=== PATIENT | female | born 1985 | race Caucasian/White ===

== ENCOUNTER 2017-12-06 19:36 | Observation (INO) | payer OTHER ==
[2017-12-06 19:44] VITALS: BMI 23.9
--- NOTE | 2017-12-06 19:55 | PDOC ---
History of Present Illness - General Chief Complaint: Chest Pain Stated Complaint: CHEST PAIN/PALPITATION Time Seen by Provider: 12/06/17 19:54 Past History - Past Medical History Allergies/Adverse Reactions: Allergies Allergy/AdvReac Type Severity Reaction Status Date / Time No Known Allergies Allergy Verified 12/06/17 19:45 Home Medications: Ambulatory Orders Warfarin Na [Coumadin -] 4 mg PO ASDIR 03/18/16 Warfarin Na [Coumadin] 2 mg PO ASDIR 05/05/16 Anemia: No Asthma: No Cancer: No Cardiac Disorders: Yes (aortic valve replacement/ppm) CVA: No COPD: No CHF: No Dementia: No Diabetes: No GI Disorders: No Disorders: No HTN: No Hypercholesterolemia: No Liver Disease: No Seizures: No Thyroid Disease: No Other medical history: PACEMAKER - Surgical History Abdominal Surgery: No Appendectomy: No Cardiac Surgery: Yes (MITRAL AND AORTIC VALVE REPLACEMENT) Cholecystectomy: No Lung Surgery: No Neurologic Surgery: No Orthopedic Surgery: No - Immunization History Immunization Up to Date: Yes - Suicide/Smoking/Psychosocial Hx Smoking Status: No Smoking History: Never smoked Have you smoked in the past 12 months: No Number of Cigarettes Smoked Daily: 0 Information on smoking cessation initiated: No Hx Alcohol Use: No Drug/Substance Use Hx: No Substance Use Type: None *Physical Exam - Vital Signs Last Vital Signs Temp Pulse Resp BP Pulse Ox 98.7 F 67 16 168/91 100 12/06/17 19:41 12/06/17 19:41 12/06/17 19:41 12/06/17 19:41 12/06/17 19:41
--- NOTE | 2017-12-06 20:04 | PDOC ---
History of Present Illness - General Chief Complaint: Chest Pain Stated Complaint: CHEST PAIN/PALPITATION Time Seen by Provider: 12/06/17 19:54 History Source: Patient Exam Limitations: No Limitations - History of Present Illness Initial Comments: This is a 32 YOF with h/o aortic valve and mitral valve replacement (d/t suspected rheumatic fever), pacemaker use (placed 05/2015 now on coumadin) who p /w chest pressure at 8/10 and a strange feeling in her left arm (all this discomfort has since resolved), palpitations, and lightheadedness. 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 She did not not take anything for her symptoms, and she denies any SOB, sweats, nausea, vomiting, abdominal pain, or other symptoms. She endorsed prior history of palpitations, but never accompanied by chest discomfort. Last INR was 2.3 but she cannot recall when this was. She notes occasional alcohol use, but denies any tobacco or drug use. Past History - Past Medical History Allergies/Adverse Reactions: Allergies Allergy/AdvReac Type Severity Reaction Status Date / Time No Known Allergies Allergy Verified 12/06/17 19:45 Home Medications: Ambulatory Orders Warfarin Na [Coumadin -] 4 mg PO ASDIR 03/18/16 Warfarin Na [Coumadin] 2 mg PO ASDIR 05/05/16 Anemia: No Asthma: No Cancer: No Cardiac Disorders: Yes (aortic valve replacement/ppm) CVA: No COPD: No CHF: No Dementia: No Diabetes: No GI Disorders: No Disorders: No HTN: No Hypercholesterolemia: No Liver Disease: No Seizures: No Thyroid Disease: No Other medical history: PACEMAKER - Surgical History Abdominal Surgery: No Appendectomy: No Cardiac Surgery: Yes (MITRAL AND AORTIC VALVE REPLACEMENT) Cholecystectomy: No Lung Surgery: No Neurologic Surgery: No Orthopedic Surgery: No - Immunization History Immunization Up to Date: Yes - Suicide/Smoking/Psychosocial Hx Smoking Status: No Smoking History: Never smoked Have you smoked in the past 12 months: No Number of Cigarettes Smoked Daily: 0 Information on smoking cessation initiated: No Hx Alcohol Use: No Drug/Substance Use Hx: No Substance Use Type: None Cardiac Specific PMH - Complaint Specific PMHX Pacemaker: No Review of Systems - Review of Systems Able to Perform ROS?: Yes Constitutional: No: Chills, Fever, Unexplained wgt Loss HEENTM: No: Nose Congestion, Throat Pain Respiratory: No: Cough, Shortness of Breath Cardiac (ROS): Yes: Chest Pain, Lightheadedness, Palpitations ABD/GI: No: Constipated, Diarrhea, Nausea, Vomiting : No: Burning, Dysuria Musculoskeletal: No: Back Pain, Neck Pain Integumentary: No: Bruising, Rash Neurological: No: Headache, Numbness, Tingling, Weakness, Dizziness Endocrine: No: Unexplained Weight Gain, Unexplained Weight Loss *Physical Exam - Vital Signs Last Vital Signs Temp Pulse Resp BP Pulse Ox 98.7 F 65 15 162/81 100 12/06/17 19:41 12/06/17 22:23 12/06/17 22:23 12/06/17 22:23 12/06/17 22:23 Heart Score/ECG Review - History History: Moderately suspicious - Electrocardiogram EKG: Normal - Age Age: </= 45 #1 Atrial sensed ventricular paced rhythm, rate of 61, Sgarbossa negative ED Treatment Course - LABORATORY CBC & Chemistry Diagram: 12/06/17 20:00 12/06/17 20:00 - ADDITIONAL ORDERS Additional order review: Laboratory Results 12/06/17 12/06/17 12/06/17 20:00 20:00 20:00 PT with INR 25.70 H INR 2.27 H PTT (Actin FS) Sodium Potassium Chloride Carbon Dioxide Anion Gap BUN Creatinine Creat Clearance w eGFR Random Glucose Calcium Magnesium 2.2 Total Bilirubin AST ALT Alkaline Phosphatase Creatine Kinase Creatine Kinase Index CK-MB (CK-2) Troponin I B-Natriuretic Peptide Total Protein Albumin Serum , Qual Negative 12/06/17 12/06/17 12/06/17 20:00 20:00 20:00 PT with INR INR PTT (Actin FS) 36.2 H D Sodium 138 Potassium 3.8 Chloride 102 Carbon Dioxide 27 Anion Gap 9 BUN 10 Creatinine 0.9 Creat Clearance w eGFR > 60 Random Glucose 93 Calcium 8.7 Magnesium Total Bilirubin 0.6 AST 41 H ALT 34 Alkaline Phosphatase 85 Creatine Kinase 167 Creatine Kinase Index 0.5 CK-MB (CK-2) < 1.000 Troponin I 0.20 H B-Natriuretic Peptide 881.43 H Total Protein 8.4 H Albumin 4.2 Serum , Qual 12/06/17 20:00 RBC 4.70 MCV 81.2 MCHC 33.2 RDW 16.1 H MPV 9.2 Neutrophils % 58.8 Lymphocytes % 30.2 Monocytes % 7.9 Eosinophils % 2.2 Basophils % 0.9 - RADIOLOGY Radiology Studies Ordered: Category Date Time Status CHEST X-RAY PORTABLE* [RAD] Stat Radiology 12/06/17 20:03 Taken - Medications Given in the ED: ED Medications Discontinued Medications Generic Name Dose Route Start Last Admin Trade Name Brad PRN Reason Stop Dose Admin Aspirin 162 mg 12/06/17 20:47 12/06/17 21:12 Asa - PO 12/06/17 20:48 162 mg ONCE ONE Administration Clopidogrel Bisulfate 300 mg 12/06/17 20:47 12/06/17 21:12 Plavix - PO 12/06/17 20:48 300 mg ONCE ONE Administration Nitroglycerin 0.4 mg 12/06/17 20:25 12/06/17 20:28 Nitrostat - SL 12/06/17 20:26 0.4 mg ONCE ONE Administration Nitroglycerin 0.5 inch 12/06/17 21:09 12/06/17 21:12 Nitro-Bid 2% Paste - TD 12/06/17 21:10 0.5 inch ONCE ONE Administration Medical Decision Making - Medical Decision Making Adult patient p/w chest pain. Initial Vital Signs Temp Pulse Resp BP Pulse Ox 98.7 F 67 16 168/91 100 12/06/17 19:41 12/06/17 19:41 12/06/17 19:41 12/06/17 19:41 12/06/17 19:41 Bilateral arm BP at time of exam is Rt 172/diastolic, Lt 200/98. Exam: Well appearing, a bit anxious, lungs clear, heart mechanical valves heard , 1/6 systolic murmur DDX IBNLT: ACS, pericarditis, tamponade, aortic dissection, AAA, PTX, PE, esophageal tear, esophagitis (e.g. pill, infectious), esophageal stricture, esophageal FB, gastritis, PUD, pancreatitis, cholecystitis, cholangitis, colitis , bowel perforation, PNA/bronchitis, musculoskeletal, etc. W/U ordered: CBCD CMP Mg Phos Lipase Troponin CK CKMB Coags T&S UA UCx EKG CXR HCG. TX ordered: monitor, SL NTG, O2 via NC. EKG: Atrial sensed ventricular paced rhythm, rate of 61, Sgarbossa negative. 12/06/17 20:[address] 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 Jamil. He and Dr. Jamil will see the patient in consult while inpatient; consult order placed. Repeat bilateral arm BP after NTG is Rt 142/diastolic, Lt 168/diastolic. ASA ordered and given 324mg. NTG paste ordered. Repeat EKG ordered. Repeat EKG: No significant change (though lead placement likely explains V1/V2 ST-T changes, and pacer spikes are now more apparent). CXR: NADP Laboratory Tests 12/06/17 12/06/17 12/06/17 20:00 20:00 20:00 WBC 8.8 RBC 4.70 Hgb 12.7 Hct 38.2 MCV 81.2 MCH 27.0 MCHC 33.2 RDW 16.1 H Plt Count 305 D MPV 9.2 Neutrophils % 58.8 Lymphocytes % 30.2 Monocytes % 7.9 Eosinophils % 2.2 Basophils % 0.9 Platelet Estimate Adequate Platelet Comment PT with INR INR PTT (Actin FS) 36.2 H D Sodium 138 Potassium 3.8 Chloride 102 Carbon Dioxide 27 Anion Gap 9 BUN 10 Creatinine 0.9 Creat Clearance w eGFR > 60 Random Glucose 93 Calcium 8.7 Magnesium Total Bilirubin 0.6 AST 41 H ALT 34 Alkaline Phosphatase 85 Creatine Kinase 167 Creatine Kinase Index 0.5 CK-MB (CK-2) < 1.000 Troponin I 0.20 H B-Natriuretic Peptide Total Protein 8.4 H Albumin 4.2 Serum , Qual 12/06/17 12/06/17 12/06/17 20:00 20:00 20:00 WBC RBC Hgb Hct MCV MCH MCHC RDW Plt Count MPV Neutrophils % Lymphocytes % Monocytes % Eosinophils % Basophils % Platelet Estimate Platelet Comment PT with INR 25.70 H INR 2.27 H PTT (Actin FS) Sodium Potassium Chloride Carbon Dioxide Anion Gap BUN Creatinine Creat Clearance w eGFR Random Glucose Calcium Magnesium 2.2 Total Bilirubin AST ALT Alkaline Phosphatase Creatine Kinase Creatine Kinase Index CK-MB (CK-2) Troponin I B-Natriuretic Peptide 881.43 H Total Protein Albumin Serum , Qual 12/06/17 20:00 WBC RBC Hgb Hct MCV MCH MCHC RDW Plt Count MPV Neutrophils % Lymphocytes % Monocytes % Eosinophils % Basophils % Platelet Estimate Platelet Comment PT with INR INR PTT (Actin FS) Sodium Potassium Chloride Carbon Dioxide Anion Gap BUN Creatinine Creat Clearance w eGFR Random Glucose Calcium Magnesium Total Bilirubin AST ALT Alkaline Phosphatase Creatine Kinase Creatine Kinase Index CK-MB (CK-2) Troponin I B-Natriuretic Peptide Total Protein Albumin Serum , Qual Negative HEART score: Repeat VS: Reassessment: ADMIT Repeat cardiac enzymes ordered. Most likely elevated troponin d/t demand ischemia. The patient is unsafe for discharge at this time. They require further hospital observation, workup, and treatment. Microblog sent to [facility] for admission. Spoke with [facility], in agreement patient to be admitted to: Telemetry, Obs. Decision to Admit order placed to [facility] covering attending Dr. Fields. *DC/Admit/Observation/Transfer Diagnosis at time of Disposition: Elevated troponin, Palpitations, Lightheadedness - Discharge Dispostion Condition at time of disposition: Guarded Decision to Admit order: Yes - Referrals Referrals: Allyn Davidson MD [Primary Care Provider] - - Patient Instructions Additional Instructions: You were seen in the ER for chest pain. We did lab work on your blood and urine , an electrocardiogram, and a chest x-ray, and we did not find any concerning abnormalities. Your symptoms improved with the medications we gave you in the ER. After our assessment, we do not believe you are having a medical emergency at this time, and we believe you are safe to go home. Take over the counter pain medications for your pain, as instructed on the medication label. Please follow up with your regular PCP doctor in 1-3 days. Call their clinic as soon as possible, tell them you were seen in the ER, and tell them you need an appointment. If you have any new or worsening symptoms, especially worsening chest pain, jaw pain, shoulder/arm pain, shortness of breath, sweats, nausea, loss of consciousness, palpitations, or other symptoms, please come back to the ER at any time (24 hours a day). If you are having severe or life threatening symptoms, or symptoms that make it unsafe to drive or have someone drive you, please call 911. - Post Discharge Activity
--- NOTE | 2017-12-06 20:09 | PDOC ---
Attending Attestation - Resident Resident Name: Anuja Regalado - ED Attending Attestation I have performed the following: I have examined & evaluated the patient, The case was reviewed & discussed with the resident, I agree w/resident's findings & plan - HPI HPI: 12/06/17 20:07 Pt comes with left arm pain chest pain , palpitations, and tingling in toes. 8/ 10 pain. She was headed out to dinner with her family. She has no fever or chills, no nausea and no vomiting. Pt never had anything like this before. Just palpiations. She has a pacemaker in place since 2011, Mitral and aortic valve replacement. SHe takes coumadin Last INR was 2.3 12/06/17 20:34 INR today is 2.27 HCG negative CBC normal. CHem pending. BP is elevated at 200/93 -176 systolic Pt is on no BP meds. - Physicial Exam PE: 12/06/17 20:08 Agree with resident exam. - Medical Decision Making 12/06/17 20:35 Resident Bello is speaking to Dr. Gonzalez, who is implementation manager [facility] at this time. 12/06/17 22:28 Pt has a +trop, so we started ASA and plavix but CPK is not elevated and she has normal CK index and Ck-MB. Dr. Covarrubias of cardio is aware of the +trop. 12/06/17 22:33 2nd EKG has slightly more prominient t wave inversions in lead V6 and lead 3 Also V1 and V2 leads seem to be reversed. 12/07/17 00:35 Pt admitted to telemetry to the hospitalist team. 2nd enzyme will be checked up there <Carolyn Medina - Last Filed: 12/07/17 00:35> Heart Score/ECG Review - ECG Intrepretation Comment:: 12/06/17 22:30 Completed @19:49:15 Atrial-sensed ventricular-paced rhythm Abnormal ECG Vent. rate 61 bpm ID inerval 188 ms QRS duration 166 ms <Ulysses Whitman - Last Filed: 12/06/17 22:30>
[2017-12-06 20:11] LABS: BASO % 0.9 % (0-2.0); EOS % 2.2 % (0-4.5); HEMATOCRIT 38.2 % (32.4-45.2); HEMOGLOBIN 12.7 GM/dL (10.7-15.3); LYMPH % 30.2 % (8-40); MCHC 33.2 g/dl (32.0-36.0); MEAN CELL VOLUME 81.2 fl (80-96); MEAN PLT VOLUME 9.2 fl (7.5-11.1); MONO % 7.9 % (3.8-10.2); NEUT % 58.8 % (42.8-82.8); PLATELET COUNT 305 K/MM3 (134-434); RDW 16.1 % (11.6-15.6); WHITE BLOOD COUNT 8.8 K/mm3 (4.0-10.0)
[2017-12-06] MEDS ORDERED: NITROGLYCERIN SUBLINGUAL 1/150 0.4 MG TAB SL ONE (20:25)
[2017-12-06 20:26] LABS: INR 2.27 (0.82-1.09); PROTHROMBIN TIME (PATIENT) 25.7 SEC (9.7-13.0)
[2017-12-06 20:37] LABS: ALBUMIN 4.2 g/dl (3.4-5.0); ANION GAP 9 (8-16); BILIRUBIN,TOTAL 0.6 mg/dL (0.2-1.0); BLOOD UREA NITROGEN 10 mg/dL (7-18); CALCIUM 8.7 mg/dL (8.5-10.1); CHLORIDE 102 mmol/L (98-107); CO2 27 mmol/L (21-32); CREATININE 0.9 mg/dL (0.55-1.02); GLUCOSE,RANDOM 93 mg/dL (74-106); POTASSIUM 3.8 mmol/L (3.5-5.1); SGOT/AST 41 U/L (15-37); SGPT/ALT 34 U/L (12-78); SODIUM 138 mmol/L (136-145); TOT PROT 8.4 g/dl (6.4-8.2)
[2017-12-06 20:39] LABS: ALK PHOS 85 U/L (45-117)
[2017-12-06] MEDS ORDERED: CLOPIDOGREL BISULFATE 300 MG TABLET PO ONE (20:47)
[2017-12-06] MEDS ORDERED: ASPIRIN 81 MG CHEWABLE TABLETS PO ONE (20:47)
[2017-12-06 20:50] LABS: PLATELET ESTIMATE ADEQUATE
--- NOTE | 2017-12-06 20:54 | CON.CARD ---
Consult Consult Specialty:: Cardiology for osmel - History of Present Illness History of Present Illness: This is a 32 YOF with h/o aortic valve and mitral valve replacement (d/t suspected rheumatic fever), pacemaker use (placed 05/2015 now on coumadin) who p /w chest pressure at 8/10 and a strange feeling in her left arm (all this discomfort has since resolved), palpitations, and lightheadedness. 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 She did not not take anything for her symptoms, and she denies any SOB, sweats, nausea, vomiting, abdominal pain, or other symptoms. She endorsed prior history of palpitations, but never accompanied by chest discomfort. Last INR was 2.3 but she cannot recall when this was. She notes occasional alcohol use, but denies any tobacco or drug use. - History Source History Provided By: Patient, Medical Record - Alcohol/Substance Use Hx Alcohol Use: No - Smoking History Smoking history: Never smoked Have you smoked in the past 12 months: No Aproximately how many cigarettes per day: 0 Home Medications - Allergies Allergies/Adverse Reactions: Allergies Allergy/AdvReac Type Severity Reaction Status Date / Time No Known Allergies Allergy Verified 12/06/17 19:45 - Home Medications Home Medications: Ambulatory Orders Warfarin Na [Coumadin -] 4 mg PO ASDIR 03/18/16 Warfarin Na [Coumadin] 2 mg PO ASDIR 05/05/16 Review of Systems - Review of Systems Constitutional: reports: No Symptoms Eyes: reports: No Symptoms HENT: reports: No Symptoms Neck: reports: No Symptoms Cardiovascular: reports: Chest Pain, Palpitations Gastrointestinal: reports: No Symptoms Genitourinary: reports: No Symptoms Breasts: reports: No Symptoms Reported Musculoskeletal: reports: No Symptoms Integumentary: reports: No Symptoms Neurological: reports: No Symptoms Endocrine: reports: No Symptoms Hematology/Lymphatic: reports: No Symptoms Psychiatric: reports: No Symptoms Vital Signs: Vital Signs Temperature 98.7 F 12/06/17 19:41 Pulse Rate 67 12/06/17 19:41 Respiratory Rate 16 12/06/17 19:41 Blood Pressure 168/91 12/06/17 19:41 O2 Sat by Pulse Oximetry (%) 100 12/06/17 19:41 Constitutional: Yes: Well Nourished, No Distress, Calm Eyes: Yes: WNL, Conjunctiva Clear, EOM Intact HENT: Yes: WNL, Atraumatic, Normocephalic Neck: Yes: WNL, Supple, Trachea Midline Respiratory: Yes: WNL, Regular, CTA Bilaterally Gastrointestinal: Yes: WNL, Normal Bowel Sounds Renal/: Yes: WNL Cardiovascular: Yes: WNL, Regular Rate and Rhythm, Other (metalic clic) Heart Sounds: Yes: S1, S2 Murmur: Yes: Systolic Murmur Musculoskeletal: Yes: WNL Extremities: Yes: WNL Integumentary: Yes: WNL Neurological: Yes: WNL, Alert, Oriented ...Motor Strength: WNL Psychiatric: Yes: WNL, Alert, Oriented - Other Data Labs, Other Data: CBC, BMP 12/06/17 20:00 12/06/17 20:00 INR, PTT INR 2.27 (0.82-1.09) H 12/06/17 20:00 Troponin, BNP 12/06/17 12/06/17 20:00 20:00 Troponin I 0.20 H B-Natriuretic Peptide 881.43 H Troponin, BNP 12/06/17 12/06/17 20:00 20:00 Troponin I 0.20 H B-Natriuretic Peptide 881.43 H Imaging - Results Chest X-ray: Image Reviewed (no i/e) EKG: Image Reviewed (sr rep abn) Problem List - Problems (1) Elevated troponin Code(s): R74.8 - ABNORMAL LEVELS OF OTHER SERUM ENZYMES (2) Lightheadedness Code(s): R42 - DIZZINESS AND GIDDINESS (3) Palpitations Code(s): R00.2 - PALPITATIONS (4) Cellulitis Code(s): L03.90 - CELLULITIS, UNSPECIFIED Qualifiers: Site of cellulitis: extremity Site of cellulitis of extremity: lower extremity Laterality: left Qualified Code(s): L03.116 - Cellulitis of left lower limb (5) Ecchymosis Code(s): R58 - HEMORRHAGE, NOT ELSEWHERE CLASSIFIED (6) Foot swelling Code(s): M79.89 - OTHER SPECIFIED SOFT TISSUE DISORDERS (7) Code(s): Z33.1 - STATE, INCIDENTAL Assessment/Plan s/p avr mvr mechanical s/p ppm admited with cp palpitations lighedness borderline tnis borderline subtherapeutic inr Plan keep INR 2.5-3.5 echo telemetry will need ppm interrogation coverage dr. Jamil
[2017-12-06] MEDS ORDERED: CLOPIDOGREL BISULFATE 75 MG TABLET (FP) ONE (21:07)
[2017-12-06] MEDS ORDERED: ASPIRIN 81 MG CHEWABLE TABLETS ONE (21:08)
[2017-12-06] MEDS ORDERED: NITROGLYCERIN 2% OINTMENT - 1GM PACKET TD ONE ×2 (21:09→21:35)
[2017-12-06] MEDS ORDERED: FUROSEMIDE 40 MG/4 ML INJECTABLE VIAL IVPUSH ONE (22:31)
[2017-12-06] MEDS ORDERED: FUROSEMIDE 40 MG/4 ML INJECTABLE VIAL ONE (22:42)
--- NOTE | 2017-12-06 23:49 | HP ---
CHIEF COMPLAINT: palpitations PCP: Dr Avila HISTORY OF PRESENT ILLNESS: The patient is a 32 year old female with a significant PMH of mitral and aortic valve replacement in 2007 and 2014 after suspected endocarditis, s/p pacemaker in 2011, on Coumadin. She presented to the hospital complaining of palpitations and chest tightness that started around 7 PM when she was going for a dinner with family. Her palpitations lasted for 5 min and chest tightness was in mid sternum. It was associated with dizziness. She states that she never experienced palpitations like that in the past. At the time a saw the patient she denies chest pain, SOB. She is compliant with er medications and follows her turkey pinner Dr Louise. 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 Family History: Father; HTN Mother: DM, HTN Siblings healthy, child: ADHD Allergies No Known Allergies Allergy (Verified 12/06/17 19:45) HOME MEDICATIONS: Home Medications Medication Instructions Recorded Warfarin Na [Coumadin -] 4 mg PO ASDIR 03/18/16 Warfarin Na [Coumadin] 2 mg PO ASDIR 05/05/16 REVIEW OF SYSTEMS CONSTITUTIONAL: Absent: fever, chills, diaphoresis, generalized weakness, malaise, loss of appetite, weight change HEENT: Absent: rhinorrhea, nasal congestion, throat pain, difficulty swallowing, CARDIOVASCULAR: palpitations Absent: chest pain, syncope irregular heart rate, lightheadedness, peripheral edema RESPIRATORY: Absent: cough, shortness of breath, dyspnea with exertion, orthopnea, wheezing GASTROINTESTINAL: Absent: abdominal pain, abdominal distension, nausea, vomiting, diarrhea, constipation GENITOURINARY: Absent: dysuria, frequency, urgency, hesitancy, hematuria MUSCULOSKELETAL: Absent: myalgia, arthralgia, joint swelling, ENDOCRINE: Absent: unexplained weight gain, unexplained weight loss, NEUROLOGIC: Absent: headache, focal weakness or paresthesias, dizziness, unsteady gait, seizure PSYCHIATRIC: Absent: anxiety, depression PHYSICAL EXAMINATION Vital Signs - 24 hr 12/06/17 12/06/17 19:41 22:23 Temperature 98.7 F Pulse Rate 67 Pulse Rate [ 65 Apical] Respiratory 16 15 Rate Blood Pressure 168/91 Blood Pressure 162/81 [Left Arm] O2 Sat by Pulse 100 100 Oximetry (%) GENERAL: Awake, alert, and fully oriented, in no acute distress. HEAD: Normal with no signs of trauma. EYES: extraocular movements intact, sclera anicteric, conjunctiva clear. EARS, NOSE, THROAT: oropharynx clear without exudates. Moist mucous membranes. NECK: Normal range of motion, supple without lymphadenopathy, JVD, or masses. LUNGS: Breath sounds equal, clear to auscultation bilaterally. No wheezes, and no crackles. No accessory muscle use. HEART: Regular rate and rhythm, normal S1 and S2, mechanical valve sound, no rub or gallop, pacemaker palpated over the right side of her chest. ABDOMEN: Obese, soft, nontender, not distended, normoactive bowel sounds, no guarding, no rebound, no masses. MUSCULOSKELETAL: Normal range of motion at all joints. No bony deformities or tenderness. UPPER EXTREMITIES: 2+ pulses, no peripheral edema. LOWER EXTREMITIES: 2+ pulses, no peripheral edema. NEUROLOGICAL: No facial asymmetry, motor 5/5, sensation intact. PSYCHIATRIC: Cooperative. Good eye contact. Appropriate mood and affect. SKIN: Warm, dry, normal turgor, no rashes or lesions noted, normal capillary refill. Laboratory Results - last 24 hr 12/06/17 12/06/17 12/06/17 20:00 20:00 20:00 WBC 8.8 RBC 4.70 Hgb 12.7 Hct 38.2 MCV 81.2 MCH 27.0 MCHC 33.2 RDW 16.1 H Plt Count 305 D MPV 9.2 Neutrophils % 58.8 Lymphocytes % 30.2 Monocytes % 7.9 Eosinophils % 2.2 Basophils % 0.9 Platelet Estimate Adequate Platelet Comment PT with INR INR PTT (Actin FS) 36.2 H D Sodium 138 Potassium 3.8 Chloride 102 Carbon Dioxide 27 Anion Gap 9 BUN 10 Creatinine 0.9 Creat Clearance w eGFR > 60 Random Glucose 93 Calcium 8.7 Magnesium Total Bilirubin 0.6 AST 41 H ALT 34 Alkaline Phosphatase 85 Creatine Kinase 167 Creatine Kinase Index 0.5 CK-MB (CK-2) < 1.000 Troponin I 0.20 H B-Natriuretic Peptide Total Protein 8.4 H Albumin 4.2 Serum , Qual 12/06/17 12/06/17 12/06/17 20:00 20:00 20:00 WBC RBC Hgb Hct MCV MCH MCHC RDW Plt Count MPV Neutrophils % Lymphocytes % Monocytes % Eosinophils % Basophils % Platelet Estimate Platelet Comment PT with INR 25.70 H INR 2.27 H PTT (Actin FS) Sodium Potassium Chloride Carbon Dioxide Anion Gap BUN Creatinine Creat Clearance w eGFR Random Glucose Calcium Magnesium 2.2 Total Bilirubin AST ALT Alkaline Phosphatase Creatine Kinase Creatine Kinase Index CK-MB (CK-2) Troponin I B-Natriuretic Peptide 881.43 H Total Protein Albumin Serum , Qual 12/06/17 20:00 WBC RBC Hgb Hct MCV MCH MCHC RDW Plt Count MPV Neutrophils % Lymphocytes % Monocytes % Eosinophils % Basophils % Platelet Estimate Platelet Comment PT with INR INR PTT (Actin FS) Sodium Potassium Chloride Carbon Dioxide Anion Gap BUN Creatinine Creat Clearance w eGFR Random Glucose Calcium Magnesium Total Bilirubin AST ALT Alkaline Phosphatase Creatine Kinase Creatine Kinase Index CK-MB (CK-2) Troponin I B-Natriuretic Peptide Total Protein Albumin Serum , Qual Negative ASSESSMENT/PLAN: The patient is a 32 year old female with a significant PMH of mitral and aortic valve replacement in 2007 and 2014 after suspected endocarditis, s/p pacemaker in 2011, on Coumadin. She presented to the hospital complaining of palpitations and chest tightness. She was found to have elevated troponins to 0.2, elevated BNP 881. Elevated troponins: -likely due to demand ischemia -Cardiology consulted, will follow recommendations -given NTG, ASA, Plavix in ED -will continue ASA and Coumadin, consider starting Beta Blockers -will trend troponins -f/u EKG H/o of valve replacement: -the patient with a INR 2.27. Her level should be between 2.5-3.5 -will continue Coumadin -please interrogate the device with [employer] History of CHF: -today BNP elevated to 881 -given Lasix in ED -not in acute exacerbation DVT PPX: -heparin sq -scds F/E/N: no/no changes/low Na Disposition: obs telemetry Problem List - Problem (1) Elevated troponin Code(s): R74.8 - ABNORMAL LEVELS OF OTHER SERUM ENZYMES (2) Lightheadedness Code(s): R42 - DIZZINESS AND GIDDINESS (3) Palpitations Code(s): R00.2 - PALPITATIONS Visit type - Emergency Visit Emergency Visit: Yes ED Registration Date: 12/06/17 Care time: The patient presented to the Emergency Department on the above date and was hospitalized for further evaluation of their emergent condition. - New Patient This patient is new to me today: Yes Date on this admission: 12/07/17 - Critical Care Critical Care patient: No Hospitalist Screening - Colonoscopy Questionnaire Colonoscopy Questionnaire: Colonoscopy Questionnaire - Patient: 50 - 75 years old and never had a screening colonoscopy: No History of colon or rectal polyps, or CA: No History of IBD, Crohn's disease or UC: No History of abdominal radiation therapy as a child: No - Relative: 1 with colon or rectal CA, or polyps at age 60 or younger: No Colon or rectal CA diagnosed at age 45 or younger: No Multiple relatives with colon or rectal CA: No - Outcome: Screening Result: Negative Screen
[2017-12-07] MEDS ORDERED: ACETAMINOPHEN 325 MG TABLET (FP) PO PRN (00:33)
--- NOTE | 2017-12-07 02:50 | PN ---
Teaching Attending Note Name of Resident: Nicki Godwin ATTENDING PHYSICIAN STATEMENT I saw and evaluated the patient. I reviewed the resident's note and discussed the case with the resident. I agree with the resident's findings and plan as documented. SUBJECTIVE: OBJECTIVE: ASSESSMENT AND PLAN: this is a 32y/o f with hx of Rheumatic heart disease, s/p AVR and MVR x 2 ([facility] 2007 [place] and 2014 [facility]), Pacemaker placement 2015 last interrogation was 2 months ago. Biotronik Dual chamber device. HFrEF, post- cardiomyopathy, 2007, and terminated due to the CHF. presented to the ER with complaints of palpitations that started around 7pm when she was leaving the house, according to her she does get them frequently however this one lasted more than the normal, last time she had them the doctor changed the setting of the pacemaker. patient is being admitted for NSTEMI: - patient was given aspirin, clopidogrel, and nitroglycerin in the ER for the symptoms. will continue aspirin will consult cardiology obtain echocardiogram c/w warfarin INR should be between 2.5-3.5 ( taking 2mg 3x a wk and 4mg x 4 days - 12/06 last dose) device interrogation from Mister Mario
[2017-12-07 07:38] LABS: EOS % 3.3 % (0-4.5); HEMOGLOBIN 11.6 GM/dL (10.7-15.3); LYMPH % 31.9 % (8-40); MCH 26.2 pg (25.7-33.7); MCHC 32.2 g/dl (32.0-36.0); MEAN CELL VOLUME 81.5 fl (80-96); MEAN PLT VOLUME 9.8 fl (7.5-11.1); MONO % 7.9 % (3.8-10.2); NEUT % 55.9 % (42.8-82.8); PLATELET COUNT 303 K/MM3 (134-434); RBC 4.42 M/mm3 (3.60-5.2); WHITE BLOOD COUNT 7.1 K/mm3 (4.0-10.0)
[2017-12-07 07:46] LABS: ALBUMIN 3.9 g/dl (3.4-5.0); ANION GAP 8 (8-16); BLOOD UREA NITROGEN 12 mg/dL (7-18); CALCIUM 8.8 mg/dL (8.5-10.1); CHLORIDE 103 mmol/L (98-107); CO2 29 mmol/L (21-32); CREATININE 0.9 mg/dL (0.55-1.02); GLUCOSE,RANDOM 79 mg/dL (74-106); MAGNESIUM 2.3 mg/dL (1.8-2.4); SGOT/AST 37 U/L (15-37); SGPT/ALT 31 U/L (12-78); SODIUM 140 mmol/L (136-145); TOT PROT 7.7 g/dl (6.4-8.2)
[2017-12-07 07:55] LABS: ALK PHOS 82 U/L (45-117); BILIRUBIN,TOTAL 0.6 mg/dL (0.2-1.0); CHOLESTEROL 175 mg/dL (50-200); HDL CHOLESTEROL 53 mg/dL (40-60); PHOSPHOROUS 4.8 mg/dL (2.5-4.9); TRIGLYCERIDES 95 mg/dL (35-160)
[2017-12-07 07:59] LABS: INR 2.31 (0.82-1.09); PROTHROMBIN TIME (PATIENT) 26.1 SEC (9.7-13.0)
--- NOTE | 2017-12-07 08:25 | PN ---
Progress Note, Physician History of Present Illness: 32y/o f with hx of Rheumatic heart disease, s/p AVR and MVR x 2 ([facility] 2007 [place] and 2014 [facility]), Pacemaker placement 2015 last interrogation was 2 months ago. Biotronik Dual chamber device. HFrEF, post- cardiomyopathy, C -section 2007, and terminated due to the CHF. presented to the ER with complaints of palpitations that started around 7pm when she was leaving the house, according to her she does get them frequently however this one lasted more than the normal, last time she had them the doctor changed the setting of the pacemaker. This is a 32 YOF with h/o aortic valve and mitral valve replacement (d/t suspected rheumatic fever), pacemaker use (placed 05/2015 now on coumadin) who p /w chest pressure at 8/10 and a strange feeling in her left arm (all this discomfort has since resolved), palpitations, and lightheadedness. She describes being the passenger in a car about 30 min [employer] to the ED when she had the onset of symptoms. She did not not take anything for her symptoms, and she denies any SOB, sweats, nausea, vomiting, abdominal pain, or other symptoms. She endorsed prior history of palpitations, but never accompanied by chest discomfort. Last INR was 2.3 but she cannot recall when this was. She notes occasional alcohol use, but denies any tobacco or drug use. - Current Medication List Current Medications: Active Medications Acetaminophen (Tylenol -) 325 mg PO Q6H PRN PRN Reason: PAIN LEVEL 4 - 6 Aspirin (Asa -) 81 mg PO DAILY [facility] Heparin Sodium (Porcine) (Heparin -) 5,000 unit SQ BID [facility] Warfarin Sodium (Coumadin -) 2 mg PO DAILY@1800 [facility] - Objective Vital Signs: Vital Signs Temperature 97.9 F 12/07/17 06:00 Pulse Rate 58 L 12/07/17 06:00 Respiratory Rate 15 12/07/17 06:06 Blood Pressure 123/68 12/07/17 06:00 O2 Sat by Pulse Oximetry (%) 100 12/07/17 06:06 Eyes: Yes: WNL, Conjunctiva Clear, EOM Intact HENT: Yes: WNL, Atraumatic, Normocephalic Neck: Yes: WNL, Supple, Trachea Midline Cardiovascular: Yes: WNL, Regular Rate and Rhythm, Murmur, S1, S2 Respiratory: Yes: WNL, Regular, CTA Bilaterally Gastrointestinal: Yes: WNL, Normal Bowel Sounds Genitourinary: Yes: WNL Musculoskeletal: Yes: WNL Extremities: Yes: WNL Edema: No Integumentary: Yes: WNL Neurological: Yes: WNL, Alert, Oriented ...Motor Strength: WNL Psychiatric: Yes: WNL Labs: CBC, BMP 12/07/17 06:02 12/07/17 06:02 INR, PTT INR 2.31 (0.82-1.09) H 12/07/17 06:02 Problem List - Problems (1) Elevated troponin Code(s): R74.8 - ABNORMAL LEVELS OF OTHER SERUM ENZYMES (2) Lightheadedness Code(s): R42 - DIZZINESS AND GIDDINESS (3) Palpitations Code(s): R00.2 - PALPITATIONS (4) Cellulitis Code(s): L03.90 - CELLULITIS, UNSPECIFIED Qualifiers: Site of cellulitis: extremity Site of cellulitis of extremity: lower extremity Laterality: left Qualified Code(s): L03.116 - Cellulitis of left lower limb (5) Ecchymosis Code(s): R58 - HEMORRHAGE, NOT ELSEWHERE CLASSIFIED (6) Foot swelling Code(s): M79.89 - OTHER SPECIFIED SOFT TISSUE DISORDERS (7) Code(s): Z33.1 - STATE, INCIDENTAL Assessment/Plan s/pAVR and MVR x 2 ([facility] 2007 [place] and 2014 [facility]), Pacemaker placement 2016 last interrogation was 2 months ago. Biotronik Dual chamber device. HFrEF, post- cardiomyopathy, 2007, and terminated due to the CHF. s/p ppm admited with cp palpitations lighedness borderline tnis -unclear significance no evidence of ACS borderline subtherapeutic inr Plan keep INR 2.5-3.5 echo telemetry will need ppm interrogation coverage dr. Jamil
--- NOTE | 2017-12-07 08:41 | EKG ---
Test Reason : Blood Pressure : / mmHG Vent. Rate : 065 BPM Atrial Rate : 065 BPM P-R Int : 138 ms QRS Dur : 168 ms QT Int : 528 ms P-R-T Axes : 048 097 006 degrees QTc Int : 549 ms POOR DATA QUALITY, INTERPRETATION MAY BE ADVERSELY AFFECTED Atrial-sensed ventricular-paced rhythm ABNORMAL ECG WHEN COMPARED WITH ECG OF 23-AUG-2011 20:57, ELECTRONIC VENTRICULAR PACEMAKER HAS REPLACED SINUS RHYTHM Confirmed by MARY ELLEN MOORE, CHENG ([id number]) on 12/07/2017 8:41:20 AM Referred By: Confirmed By:CHENG HYDE MD
[2017-12-07] MEDS: ASPIRIN 81 MG CHEWABLE TABLETS PO SCH (09:31)
[2017-12-07] MEDS ORDERED: HEPARIN NA (PORCINE) 5,000 UNITS/ML 1ML VIAL SQ SCH (10:00)
--- NOTE | 2017-12-07 13:25 | EKG ---
Test Reason : Blood Pressure : / mmHG Vent. Rate : 055 BPM Atrial Rate : 055 BPM P-R Int : 148 ms QRS Dur : 164 ms QT Int : 550 ms P-R-T Axes : 021 107 046 degrees QTc Int : 526 ms Atrial-sensed ventricular-paced rhythm ABNORMAL ECG WHEN COMPARED WITH ECG OF 06-DEC-2017 22:15, VENT. RATE HAS DECREASED BY 10 BPM Confirmed by MARY ELLEN MOORE, CHENG ([id number]) on 12/07/2017 1:24:39 PM Referred By: Sandra FRANCIS Confirmed By:CHENG HYDE MD
--- NOTE | 2017-12-07 14:28 | PN ---
Teaching Attending Note Name of Resident: Jyoti Munoz SUBJECTIVE: Patient seen and examined, no further chest pain or palpitations, doing well overnight, no dyspnea. OBJECTIVE: Vital Signs Period Temp Pulse Resp BP Sys/Resendiz Pulse Ox Last 24 Hr 97.9 F-98.7 F 58-88 15-18 116-168/57-91 100-100 Intake & Output 12/04/17 12/05/17 12/06/17 12/07/17 23:59 23:59 23:59 23:59 Intake Total 100 Balance 100 Weight 135 lb 135 lb General: sitting in bed in no acute distress Chest: CTAB, no rales or wheezing Abdomen:soft, NT, ND CVS: S1S2 regular, mechanical click in aortic area Home Medication List Medication Instructions Recorded Confirmed Type Warfarin Na [Coumadin -] 4 mg PO ASDIR 03/18/16 12/06/17 History Warfarin Na [Coumadin] 2 mg PO ASDIR 05/05/16 12/06/17 History Active Medications Generic Name Dose Route Start Last Admin Trade Name Brad PRN Reason Stop Dose Admin Acetaminophen 325 mg 12/07/17 00:33 Tylenol - PO Q6H PRN PAIN LEVEL 4 - 6 Aspirin 81 mg 12/07/17 10:00 12/07/17 09:31 Asa - PO 81 mg DAILY [facility] Administration Warfarin Sodium 4 mg 12/07/17 18:00 Coumadin - PO DAILY@1800 [facility] Laboratory Results - last 24 hr 12/06/17 12/06/17 12/06/17 20:00 20:00 20:00 WBC 8.8 RBC 4.70 Hgb 12.7 Hct 38.2 MCV 81.2 MCH 27.0 MCHC 33.2 RDW 16.1 H Plt Count 305 D MPV 9.2 Neutrophils % 58.8 Lymphocytes % 30.2 Monocytes % 7.9 Eosinophils % 2.2 Basophils % 0.9 Platelet Estimate Adequate Platelet Comment PT with INR INR PTT (Actin FS) 36.2 H D Sodium 138 Potassium 3.8 Chloride 102 Carbon Dioxide 27 Anion Gap 9 BUN 10 Creatinine 0.9 Creat Clearance w eGFR > 60 Random Glucose 93 Calcium 8.7 Phosphorus Magnesium Total Bilirubin 0.6 AST 41 H ALT 34 Alkaline Phosphatase 85 Creatine Kinase 167 Creatine Kinase Index 0.5 CK-MB (CK-2) < 1.000 Troponin I 0.20 H B-Natriuretic Peptide Total Protein 8.4 H Albumin 4.2 Triglycerides Cholesterol Total LDL Cholesterol HDL Cholesterol Serum , Qual 12/06/17 12/06/17 12/06/17 20:00 20:00 20:00 WBC RBC Hgb Hct MCV MCH MCHC RDW Plt Count MPV Neutrophils % Lymphocytes % Monocytes % Eosinophils % Basophils % Platelet Estimate Platelet Comment PT with INR 25.70 H INR 2.27 H PTT (Actin FS) Sodium Potassium Chloride Carbon Dioxide Anion Gap BUN Creatinine Creat Clearance w eGFR Random Glucose Calcium Phosphorus Magnesium 2.2 Total Bilirubin AST ALT Alkaline Phosphatase Creatine Kinase Creatine Kinase Index CK-MB (CK-2) Troponin I B-Natriuretic Peptide 881.43 H Total Protein Albumin Triglycerides Cholesterol Total LDL Cholesterol HDL Cholesterol Serum , Qual 12/06/17 12/07/17 12/07/17 20:00 01:00 06:02 WBC RBC Hgb Hct MCV MCH MCHC RDW Plt Count MPV Neutrophils % Lymphocytes % Monocytes % Eosinophils % Basophils % Platelet Estimate Platelet Comment PT with INR INR PTT (Actin FS) Sodium Potassium Chloride Carbon Dioxide Anion Gap BUN Creatinine Creat Clearance w eGFR Random Glucose Calcium Phosphorus Magnesium Total Bilirubin AST ALT Alkaline Phosphatase Creatine Kinase Creatine Kinase Index CK-MB (CK-2) Troponin I 0.21 H 0.17 H B-Natriuretic Peptide Total Protein Albumin Triglycerides Cholesterol Total LDL Cholesterol HDL Cholesterol Serum , Qual Negative 12/07/17 12/07/17 12/07/17 06:02 06:02 06:02 WBC 7.1 RBC 4.42 Hgb 11.6 Hct 36.0 MCV 81.5 MCH 26.2 MCHC 32.2 RDW 16.0 H Plt Count 303 MPV 9.8 Neutrophils % 55.9 Lymphocytes % 31.9 Monocytes % 7.9 Eosinophils % 3.3 Basophils % 1.0 Platelet Estimate Platelet Comment PT with INR 26.10 H INR 2.31 H PTT (Actin FS) Sodium 140 Potassium 4.0 Chloride 103 Carbon Dioxide 29 Anion Gap 8 BUN 12 Creatinine 0.9 Creat Clearance w eGFR > 60 Random Glucose 79 Calcium 8.8 Phosphorus 4.8 Magnesium 2.3 Total Bilirubin 0.6 AST 37 ALT 31 Alkaline Phosphatase 82 Creatine Kinase Creatine Kinase Index CK-MB (CK-2) Troponin I B-Natriuretic Peptide Total Protein 7.7 Albumin 3.9 Triglycerides 95 Cholesterol 175 Total LDL Cholesterol 110 H HDL Cholesterol 53 Serum , Qual CXr - no acute process ASSESSMENT AND PLAN: 32 yof with PMHx of Rheumatic Heart Disease, AVR/MVR , s/p PPM, HRpEF, post cardiomyopathy, admitted with palpitations and elevated troponin. -Palpitations, r/o arrhthymia -Elevated troponin, low suspicion for ACS -S/p AVR/MVR. Plan: Cardiology input noted. Continue telemetry, follow up2D echo. Discussed with RN, PPM interrogation with Infers. Check TSH s/p lasix in ED, clinical exam not consistent with volume overload. INR 2.3 Patient on warfarin 2 mg MWF and 4 mg TThSS, will continue 4mg daily till in therapeutic range Dispo in 24 hours pending above if no concerns. Plan discussed with patient in detail, all questions answered.
[2017-12-07] MEDS ORDERED: WARFARIN NA 2 MG TABLET (UD) PO SCH ×2 (18:00)
--- NOTE | 2017-12-07 21:44 | EKG ---
Test Reason : Blood Pressure : / mmHG Vent. Rate : 061 BPM Atrial Rate : 061 BPM P-R Int : 188 ms QRS Dur : 166 ms QT Int : 526 ms P-R-T Axes : -09 103 009 degrees QTc Int : 529 ms Atrial-sensed ventricular-paced rhythm ABNORMAL ECG WHEN COMPARED WITH ECG OF 23-AUG-2011 20:57, ELECTRONIC VENTRICULAR PACEMAKER HAS REPLACED SINUS RHYTHM Confirmed by MARY ELLEN MOORE, CHENG ([id number]) on 12/07/2017 9:44:42 PM Referred By: Confirmed By:CHENG HYDE MD
[2017-12-08 06:04] LABS: EOS % 4.6 % (0-4.5); HEMATOCRIT 34.1 % (32.4-45.2); HEMOGLOBIN 11.2 GM/dL (10.7-15.3); LYMPH % 33.3 % (8-40); MCH 26.9 pg (25.7-33.7); MCHC 32.9 g/dl (32.0-36.0); MEAN CELL VOLUME 81.9 fl (80-96); MEAN PLT VOLUME 9.7 fl (7.5-11.1); MONO % 6.9 % (3.8-10.2); NEUT % 54.2 % (42.8-82.8); PLATELET COUNT 269 K/MM3 (134-434); RBC 4.16 M/mm3 (3.60-5.2); RDW 15.7 % (11.6-15.6); WHITE BLOOD COUNT 6.6 K/mm3 (4.0-10.0)
[2017-12-08 06:15] LABS: INR 2.33 (0.82-1.09); PROTHROMBIN TIME (PATIENT) 26.3 SEC (9.7-13.0)
[2017-12-08 06:25] LABS: ANION GAP 5 (8-16); BLOOD UREA NITROGEN 15 mg/dL (7-18); CALCIUM 8.4 mg/dL (8.5-10.1); CHLORIDE 108 mmol/L (98-107); CO2 27 mmol/L (21-32); CREATININE 0.8 mg/dL (0.55-1.02); GLUCOSE,RANDOM 85 mg/dL (74-106); MAGNESIUM 2.1 mg/dL (1.8-2.4); PHOSPHOROUS 3.8 mg/dL (2.5-4.9); POTASSIUM 4.2 mmol/L (3.5-5.1); SODIUM 140 mmol/L (136-145)
--- NOTE | 2017-12-08 07:53 | PN ---
Physical Exam: SUBJECTIVE: Patient seen and examined. No chest pain or palpitations overnight. Wants to go home. OBJECTIVE: Vital Signs Period Temp Pulse Resp BP Sys/Resendiz Pulse Ox Last 24 Hr 97.6 F-98.0 F 48-88 18-18 116-150/57-85 100-100 GENERAL: The patient is awake, alert, and fully oriented, in no acute distress. HEAD: Normal with no signs of trauma. EYES: PERRL, extraocular movements intact, sclera anicteric, conjunctiva clear. No ptosis. ENT: Ears normal, nares patent, oropharynx clear without exudates, moist mucous membranes. NECK: Trachea midline, full range of motion, supple. LUNGS: Breath sounds equal, clear to auscultation bilaterally, no wheezes, no crackles, no accessory muscle use. HEART: Regular rate and rhythm, S1, S2 without murmur, rub or gallop. ABDOMEN: Soft, nontender, nondistended, normoactive bowel sounds, no guarding, no rebound, no hepatosplenomegaly, no masses. EXTREMITIES: 2+ pulses, warm, well-perfused, no edema. NEUROLOGICAL: Cranial nerves II through XII grossly intact. Normal speech, gait not observed. PSYCH: Normal mood, normal affect. SKIN: Warm, dry, normal turgor, no rashes or lesions noted Laboratory Results - last 24 hr 12/07/17 12/07/17 12/07/17 06:02 06:02 06:02 WBC RBC Hgb Hct MCV MCH MCHC RDW Plt Count MPV Neutrophils % Lymphocytes % Monocytes % Eosinophils % Basophils % PT with INR 26.10 H INR 2.31 H Sodium Potassium Chloride Carbon Dioxide Anion Gap BUN Creatinine Random Glucose Calcium Phosphorus 4.8 Magnesium Total Bilirubin 0.6 Alkaline Phosphatase 82 Troponin I 0.17 H Triglycerides 95 Cholesterol 175 Total LDL Cholesterol 110 H HDL Cholesterol 53 12/08/17 12/08/17 12/08/17 05:48 05:48 05:48 WBC 6.6 RBC 4.16 Hgb 11.2 Hct 34.1 MCV 81.9 MCH 26.9 MCHC 32.9 RDW 15.7 H Plt Count 269 MPV 9.7 Neutrophils % 54.2 Lymphocytes % 33.3 Monocytes % 6.9 Eosinophils % 4.6 H Basophils % 1.0 PT with INR 26.30 H INR 2.33 H Sodium 140 Potassium 4.2 Chloride 108 H Carbon Dioxide 27 Anion Gap 5 L BUN 15 Creatinine 0.8 Random Glucose 85 Calcium 8.4 L Phosphorus 3.8 Magnesium 2.1 Total Bilirubin Alkaline Phosphatase Troponin I Triglycerides Cholesterol Total LDL Cholesterol HDL Cholesterol Active Medications Generic Name Dose Route Start Last Admin Trade Name Freq PRN Reason Stop Dose Admin Acetaminophen 325 mg 12/07/17 00:33 Tylenol - PO Q6H PRN PAIN LEVEL 4 - 6 Aspirin 81 mg 12/07/17 10:00 12/07/17 09:31 Asa - PO 81 mg DAILY [facility] Administration Warfarin Sodium 4 mg 12/07/17 18:00 12/07/17 17:28 Coumadin - PO 4 mg DAILY@1800 [facility] Administration ASSESSMENT/PLAN:
--- NOTE | 2017-12-08 08:50 | PN ---
Progress Note, Physician Chief Complaint: feels fine Tele negative - Current Medication List Current Medications: Active Medications Acetaminophen (Tylenol -) 325 mg PO Q6H PRN PRN Reason: PAIN LEVEL 4 - 6 Aspirin (Asa -) 81 mg PO DAILY [facility] Last Admin: 12/07/17 09:31 Dose: 81 mg Warfarin Sodium (Coumadin -) 4 mg PO DAILY@1800 [facility] Last Admin: 12/07/17 17:28 Dose: 4 mg - Objective Vital Signs: Vital Signs Temperature 97.9 F 12/08/17 05:33 Pulse Rate 48 L 12/08/17 05:33 Respiratory Rate 18 12/08/17 05:33 Blood Pressure 123/60 12/08/17 05:33 O2 Sat by Pulse Oximetry (%) 100 12/08/17 05:33 Constitutional: Yes: No Distress Cardiovascular: Yes: Regular Rate and Rhythm Respiratory: Yes: CTA Bilaterally Gastrointestinal: Yes: Soft Edema: No Neurological: Yes: Alert, Oriented Labs: CBC, BMP 12/08/17 05:48 12/08/17 05:48 INR, PTT INR 2.33 (0.82-1.09) H 12/08/17 05:48 Laboratory Tests 12/06/17 12/07/17 12/07/17 20:00 01:00 06:02 INR Potassium Creatinine Creatine Kinase 167 Troponin I 0.20 H 0.21 H 0.17 H TSH 12/08/17 12/08/17 05:48 05:48 INR 2.33 H Potassium 4.2 Creatinine 0.8 Creatine Kinase Troponin I TSH Pending - ....Imaging Chest X-ray: Report Reviewed, Image Reviewed EKG: Image Reviewed Assessment/Plan s/pAVR and MVR x 2 ([facility] 2007 [place] and 2014 [facility]), Pacemaker placement 2016 last interrogation was 2 months ago. Biotronik Dual chamber device. admited with cp palpitations lighedness borderline tnis -unclear significance no evidence of ACS borderline subtherapeutic inr REC: Echo Adjust coumadin for INR 2.5-3 PPM interrogation
--- NOTE | 2017-12-08 08:50 | PN ---
Teaching Attending Note Name of Resident: Eli Gorman ATTENDING PHYSICIAN STATEMENT I saw and evaluated the patient. I reviewed the resident's note and discussed the case with the resident. I agree with the resident's findings and plan as documented with exceptions below. SUBJECTIVE: Patient seen and examined. no complaints, no further episodes of palpitations, eager to go home. OBJECTIVE: Vital Signs Period Temp Pulse Resp BP Sys/Resendiz Pulse Ox Last 24 Hr 97.6 F-98.0 F 48-88 18-18 116-150/57-85 100-100 Intake & Output 12/05/17 12/06/17 12/07/17 12/08/17 23:59 23:59 23:59 23:59 Intake Total 730 100 Balance 730 100 Weight 135 lb 135 lb General : ambulating in hallway, no concerns CVS: S1S2 regular Chest: CTAB, no rales or wheezing Home Medication List Medication Instructions Recorded Confirmed Type Warfarin Na [Coumadin -] 4 mg PO ASDIR 03/18/16 12/06/17 History Warfarin Na [Coumadin] 2 mg PO ASDIR 05/05/16 12/06/17 History Active Medications Generic Name Dose Route Start Last Admin Trade Name Freq PRN Reason Stop Dose Admin Acetaminophen 325 mg 12/07/17 00:33 Tylenol - PO Q6H PRN PAIN LEVEL 4 - 6 Aspirin 81 mg 12/07/17 10:00 12/07/17 09:31 Asa - PO 81 mg DAILY BILL Administration Warfarin Sodium 4 mg 12/07/17 18:00 12/07/17 17:28 Coumadin - PO 4 mg DAILY@1800 BILL Administration Laboratory Results - last 24 hr 12/08/17 12/08/17 12/08/17 05:48 05:48 05:48 WBC 6.6 RBC 4.16 Hgb 11.2 Hct 34.1 MCV 81.9 MCH 26.9 MCHC 32.9 RDW 15.7 H Plt Count 269 MPV 9.7 Neutrophils % 54.2 Lymphocytes % 33.3 Monocytes % 6.9 Eosinophils % 4.6 H Basophils % 1.0 PT with INR 26.30 H INR 2.33 H Sodium 140 Potassium 4.2 Chloride 108 H Carbon Dioxide 27 Anion Gap 5 L BUN 15 Creatinine 0.8 Random Glucose 85 Calcium 8.4 L Phosphorus 3.8 Magnesium 2.1 TSH 12/08/17 05:48 WBC RBC Hgb Hct MCV MCH MCHC RDW Plt Count MPV Neutrophils % Lymphocytes % Monocytes % Eosinophils % Basophils % PT with INR INR Sodium Potassium Chloride Carbon Dioxide Anion Gap BUN Creatinine Random Glucose Calcium Phosphorus Magnesium TSH Cancelled ASSESSMENT AND PLAN: 32 yof with PMHx of Rheumatic Heart Disease, AVR/MVR , s/p PPM, HRpEF, post cardiomyopathy, admitted with palpitations and elevated troponin. -Palpitations, r/o arrhthymia -Elevated troponin, low suspicion for ACS -S/p AVR/MVR. Plan: Cardiology input noted. Continue telemetry, 2D echo noted. PPM interrogated, discussed with rep, episode of atrial tachycardia 140s but Ventricular rate 80s, unlikely to cause symptoms. TSH WNL. s/p lasix in ED, clinical exam not consistent with volume overload. INR 2.3 COumadin increased to 5 mg daily by cardiology, INR check in 2-3 days. Dispo today pending discussion with Dr. Jamil. Plan discussed with patient in detail, all questions answered.
[2017-12-08] MEDS: ASPIRIN 81 MG CHEWABLE TABLETS PO SCH (09:13)
[2017-12-08 10:11] VITALS: TEMP 98
[2017-12-08 15:19] VITALS: BP 126/70; PULSE 54
[2017-12-08] MEDS ORDERED: WARFARIN NA 5 MG TABLET (UD) PO SCH (18:00)
--- NOTE | 2017-12-08 21:36 | DS ---
Physical Exam: SUBJECTIVE: Patient seen and examined. No chest pain or palpitations overnight. Wants to go home. Device interrogation did not show any defects. To get ECHO this am. Pt wants to go home. OBJECTIVE: Vital Signs Period Temp Pulse Resp BP Sys/Resendiz Pulse Ox Last 24 Hr 97.6 F-98 F 48-65 18-18 123-150/60-83 100-100 Vital Signs Temp 98 F 12/08/17 15:17 Pulse 54 L 12/08/17 15:17 Resp 18 12/08/17 15:17 BP 126/70 12/08/17 15:17 Pulse Ox 100 12/08/17 09:00 PHYSICAL EXAM GENERAL: The patient is awake, alert, and fully oriented, in no acute distress. NECK: No JVD LUNGS: Breath sounds equal, clear to auscultation bilaterally, no wheezes, no crackles HEART: Regular rate and rhythm, S1, S2 , mechanical heart sounds in mitral and aortic areas. ABDOMEN: Soft, nontender, nondistended, normoactive bowel sounds EXTREMITIES: 2+ pulses, warm, well-perfused, no edema. NEUROLOGICAL: Cranial nerves II through XII grossly intact. Normal speech, normal gait PSYCH: Normal mood, normal affect. SKIN: Warm, dry, normal turgor, no rashes or lesions noted. LABS Laboratory Results - last 24 hr 12/08/17 12/08/17 12/08/17 05:48 05:48 05:48 WBC 6.6 RBC 4.16 Hgb 11.2 Hct 34.1 MCV 81.9 MCH 26.9 MCHC 32.9 RDW 15.7 H Plt Count 269 MPV 9.7 Neutrophils % 54.2 Lymphocytes % 33.3 Monocytes % 6.9 Eosinophils % 4.6 H Basophils % 1.0 PT with INR 26.30 H INR 2.33 H Sodium 140 Potassium 4.2 Chloride 108 H Carbon Dioxide 27 Anion Gap 5 L BUN 15 Creatinine 0.8 Random Glucose 85 Calcium 8.4 L Phosphorus 3.8 Magnesium 2.1 TSH 1.31 12/08/17 05:48 WBC RBC Hgb Hct MCV MCH MCHC RDW Plt Count MPV Neutrophils % Lymphocytes % Monocytes % Eosinophils % Basophils % PT with INR INR Sodium Potassium Chloride Carbon Dioxide Anion Gap BUN Creatinine Random Glucose Calcium Phosphorus Magnesium TSH Cancelled ECHO: 12/08/17: EF-60-65%. Bileaflet mitral and aortic mechanical prosthetic valves without regurgitation. Mild-moderate TR, mild SD. No evidence of pericardial effusion. 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 She presented to the hospital complaining of palpitations and chest tightness. She was found to have elevated troponins to 0.2, elevated BNP 881. Elevated troponins: Was likely due to demand ischemia. Pt received NTG, ASA, Plavix in ED and continued with coumadin. Troponins peaked and trended down to normal. Her Coumadin dose was adjusted to 5mg daily as she came in subtherapeutic with a goal of 2.5-3.5. H/o of valve replacement: The patient presented with a INR 2.27. Her level should be between 2.5-3.5.Her Coumadin dose was adjusted to 5mg daily. Her device was interrogated with [place] History of CHF: She presented with BNP elevated to 881, received Lasix in ED. Not in acute exacerbation, so lasix was discontinued. Patient to follow up in 2-3 days with [employer] Dr Jamil for INR and coumadin adjustment. - Minutes to complete discharge: 40 Discharge Summary Reason For Visit: PALPITATIONS,LIGHTHEADEDNESS,ELEVATED TROPONIN Condition: Stable - Instructions Diet, Activity, Other Instructions: You were admitted for palpitations. Your ECHO was reviewed with Dr. Jamil with no concerns. Start taking 5mg of coumadin everyday. We are giving you a prescription for the next one week. Please follow up with Dr. Jamil on Friday12/12/2017 to have your blood pressure and INR checked and your coumadin will be dosed according to INR reading on Friday. Follow up with your PCP in 1 week. If you have any new or worsening symptoms, especially worsening chest pain, jaw pain, shoulder/arm pain, shortness of breath, sweats, nausea, loss of consciousness, palpitations, or other symptoms, please return to the ER . watch for bleeding from gums, nose, urine and stool. Referrals: Alexandre Jamil MD [Staff Physician] - 12/10/17 Allyn Davisdon MD [Primary Care Provider] - 1 Week Disposition: HOME - Home Medications Comprehensive Discharge Medication List: Ambulatory Orders Warfarin Sodium [Coumadin] 5 mg PO DAILY 7 Days #7 tablet 12/08/17 This patient is new to me today: Yes Date on this admission: 12/08/17 Emergency Visit: Yes ED Registration Date: 12/06/17 Care time: The patient presented to the Emergency Department on the above date and was hospitalized for further evaluation of their emergent condition. Critical Care patient: No - Discharge Referral Referred to [facility] No
== END 2017-12-08 16:14 | disposition home or self-care (01) ==
LOC: JER 19:36 → JERBED 22:40 → J4W 12-07 00:01
PROVIDERS: ADMIT Internal Medicine; ATTEND Hospitalist
PROC: 3E033GC Introduction of Other Therapeutic Substance into Peripheral Vein, Percutaneous Approach (ICD-10-PCS; principal; 2017-12-06)
DX: R00.2 Palpitations (principal); R77.8 Other specified abnormalities of plasma proteins; R42 Dizziness and giddiness; Z79.01 Long term (current) use of anticoagulants; Z95.2 Presence of prosthetic heart valve; Z98.0 Intestinal bypass and anastomosis status; R94.31 Abnormal electrocardiogram [ECG] [EKG]; L03.116 Cellulitis of left lower limb; R58 Hemorrhage, not elsewhere classified; M79.89 Other specified soft tissue disorders; Z33.1 Pregnant state, incidental
CPT/HCPCS: 36415; 71045-TC-FY; 80048; 80053; 80061; 82550; 82553; 83721; 83735; 83880; 84100; 84443; 84484; 84703; 85025; 85610; 85730; 93005; 93010; 93306-TC; 99282-25; G0378

== ENCOUNTER 2017-12-30 17:17 | Emergency (ER) | payer OTHER ==
[2017-12-30 17:27] VITALS: BP 157/85; PULSE 72; TEMP 98.2; BMI 24.4
--- NOTE | 2017-12-30 17:28 | PDOC ---
Rapid Medical Evaluation Time Seen by Provider: 12/30/17 17:22 Medical Evaluation: Allergies Allergy/AdvReac Type Severity Reaction Status Date / Time No Known Allergies Allergy Verified 12/06/17 19:45 12/30/17 17:23 I have performed a brief in-person evaluation of this patient. The patient presents with a chief complaint of: Fr[place]i- seen by cardiology for INR check - today was 8.4. Had INR 2 weeks ago was 2.9 aND COUMADIN INCREASED- no headche, no bowel or bladder bleeding , menstrating now. Pertinent physical exam findings: Pale, I have ordered the following: CBC, INR, CMP, IV The patient will proceed to the ED for further evaluation. 12/30/17 17:23 Discharge Disposition - Referrals Referrals: Allyn Davidson MD [Primary Care Provider] - - Patient Instructions - Post Discharge Activity
[2017-12-30 17:49] LABS: URINE APPEARANCE CLOUDY; URINE BILIRUBIN NEGATIVE (<2.0 mg/dL); URINE BLOOD 3+ (NEGATIVE); URINE COLOR LTYELLOW; URINE GLUCOSE (UA) NEGATIVE (NEGATIVE); URINE KETONE NEGATIVE (NEGATIVE); URINE LEUK ESTERASE NEGATIVE (NEGATIVE); URINE NITRITE NEGATIVE (NEGATIVE); URINE PROTEIN NEGATIVE (NEGATIVE); URINE UROBILINOGEN NEGATIVE mg/dL (0.2-1.0)
[2017-12-30 18:35] LABS: BASO % 1.4 % (0-2.0); EOS % 3.2 % (0-4.5); HEMATOCRIT 36.3 % (32.4-45.2); HEMOGLOBIN 11.4 GM/dL (10.7-15.3); LYMPH % 33.2 % (8-40); MCH 25.7 pg (25.7-33.7); MCHC 31.4 g/dl (32.0-36.0); MEAN PLT VOLUME 9.7 fl (7.5-11.1); NEUT % 56.2 % (42.8-82.8); PLATELET COUNT 302 K/MM3 (134-434); RBC 4.43 M/mm3 (3.60-5.2); RDW 15.6 % (11.6-15.6); WHITE BLOOD COUNT 8.3 K/mm3 (4.0-10.0)
[2017-12-30 18:59] LABS: PROTHROMBIN TIME (PATIENT) 82.2 SEC (9.7-13.0)
[2017-12-30 19:02] LABS: INR 7.27 (0.82-1.09)
--- NOTE | 2017-12-30 19:45 | PDOC ---
History of Present Illness - General History Source: Patient Exam Limitations: No Limitations <Cyrus Saeed - Last Filed: 12/30/17 20:54> - History of Present Illness Initial Comments: 12/30/17 19:50 "The patient is a 32 year old female, with a significant past medical history of aortic valve and mitral valve replacement on Warfarin, pacemaker (placed 2014), who presents to the emergency department with an elevated INR. As per patient, she was visiting her PCP when he performed a point of care INR test that registered >8.0. She was then told to come to ED for formal INR testing. The patients last dose of Coumadin was yesterday, 5mg. She takes 4mg of Coumadin 3 times a week and 5mg 4 times a week. She reports having a minor nosebleed yesterday that resolved spontaneously but denies any other abnormal bleeding. The pt notes she is also on her period but denies any heavier than normal bleeding. She denies recent fevers, chills, headache or dizziness. She denies recent nausea, vomit, diarrhea or constipation. She denies recent dysuria, frequency, urgency or hematuria. She denies recent chest pain or shortness of breath. Allergies: NKA Past surgical history: 2 mechanical valve placements (mitral and aortic), pacemaker implantation. Social history: Nonsmoker. Denies EtOH use and recreational drug use. Primary Care Physician: Dr. Davidson " <Neil Harris - Last Filed: 12/30/17 21:59> - General Chief Complaint: Revisit, Lab Variance Stated Complaint: REF BY DOCTOR Time Seen by Provider: 12/30/17 17:22 Past History <Cyrus Saeed - Last Filed: 12/30/17 20:54> - Past Medical History Anemia: No Asthma: No Cancer: No Cardiac Disorders: Yes (aortic valve replacement/ppm) CVA: No COPD: No CHF: No Dementia: No Diabetes: No GI Disorders: No Disorders: No HTN: No Hypercholesterolemia: No Liver Disease: No Seizures: No Thyroid Disease: No - Surgical History Abdominal Surgery: No Appendectomy: No Cardiac Surgery: Yes (MITRAL AND AORTIC VALVE REPLACEMENT) Cholecystectomy: No Lung Surgery: No Neurologic Surgery: No Orthopedic Surgery: No - Immunization History Immunization Up to Date: Yes - Suicide/Smoking/Psychosocial Hx Smoking Status: No Smoking History: Never smoked Have you smoked in the past 12 months: No Number of Cigarettes Smoked Daily: 0 Hx Alcohol Use: No Drug/Substance Use Hx: No Substance Use Type: None Hx Substance Use Treatment: No <Neil Harris - Last Filed: 12/30/17 21:59> - Past Medical History Allergies/Adverse Reactions: Allergies Allergy/AdvReac Type Severity Reaction Status Date / Time No Known Allergies Allergy Verified 12/30/17 17:23 Home Medications: Ambulatory Orders Warfarin Sodium [Coumadin] 5 mg PO DAILY 7 Days #7 tablet 12/08/17 Review of Systems - Review of Systems Comments:: 12/30/17 19:52 "GENERAL/CONSTITUTIONAL: No fever or chills. No weakness. HEAD, EYES, EARS, NOSE AND THROAT: No change in vision. No ear pain or discharge. No sore throat. CARDIOVASCULAR: No chest pain or shortness of breath. RESPIRATORY: No cough, wheezing, or hemoptysis. GASTROINTESTINAL: No nausea, vomiting, diarrhea or constipation. GENITOURINARY: No dysuria, frequency, or change in urination. MUSCULOSKELETAL: No joint or muscle swelling or pain. No neck or back pain. SKIN: No rash NEUROLOGIC: No headache, vertigo, loss of consciousness, or change in strength/ sensation. ENDOCRINE: No increased thirst. No abnormal weight change. HEMATOLOGIC/LYMPHATIC: No anemia, easy bleeding, or history of blood clots. ALLERGIC/IMMUNOLOGIC: No hives or skin allergy. " <Neil Harris - Last Filed: 12/30/17 21:59> *Physical Exam - Vital Signs Last Vital Signs Temp Pulse Resp BP Pulse Ox 98.2 F 72 20 157/85 100 12/30/17 17:23 12/30/17 17:23 12/30/17 17:23 12/30/17 17:23 12/30/17 17:23 <Cyrus Saeed - Last Filed: 12/30/17 20:54> - Vital Signs Last Vital Signs Temp Pulse Resp BP Pulse Ox 98.2 F 72 20 157/85 100 12/30/17 17:23 12/30/17 17:23 12/30/17 17:23 12/30/17 17:23 12/30/17 17:23 - Physical Exam Comments: 12/30/17 19:52 "GENERAL: Awake, alert, and fully oriented, in no acute distress. HEAD: No signs of trauma EYES: PERRLA, EOMI, sclera anicteric, conjunctiva clear ENT: Auricles normal inspection, hearing grossly normal, nares patent, oropharynx clear without exudates. Moist mucosa NECK: Nontender, no stepoffs, Normal ROM, supple, no lymphadenopathy, JVD, or masses LUNGS: Breath sounds equal, clear to auscultation bilaterally. No wheezes, and no crackles HEART: Regular rate and rhythm, normal S1 and S2, no murmurs, rubs or gallops ABDOMEN: Soft, nontender, normoactive bowel sounds. No guarding, no rebound. No masses EXTREMITIES: Normal range of motion, no edema. No clubbing or cyanosis. No cords, erythema, or tenderness NEUROLOGICAL: Cranial nerves II through XII intact. 5/5 strength and sensation in all extremities, Normal speech, normal gait, normal cerebellar function SKIN: Warm, Dry, normal turgor, no rashes or lesions noted. " <Neil Harris - Last Filed: 12/30/17 21:59> ED Treatment Course - LABORATORY CBC & Chemistry Diagram: 12/30/17 18:10 - ADDITIONAL ORDERS Additional order review: Laboratory Results 12/30/17 12/30/17 12/30/17 18:10 18:10 17:30 PT with INR 82.20 H INR 7.27 H* D Urine Color Ltyellow Urine Appearance Cloudy Urine pH 7.0 D Ur Specific [place] 1.020 Urine Protein Negative Urine Glucose (UA) Negative Urine Ketones Negative Urine Blood 3+ H Urine Nitrite Negative Urine Bilirubin Negative Urine Urobilinogen Negative Ur Leukocyte Esterase Negative Urine WBC (Auto) <1 Urine RBC (Auto) 76 Ur Epithelial Cells Rare Urine Yeast Many Blood Type A POSITIVE Antibody Screen Negative 12/30/17 18:10 RBC 4.43 MCV 82.0 MCHC 31.4 L RDW 15.6 MPV 9.7 Neutrophils % 56.2 Lymphocytes % 33.2 Monocytes % 6.0 Eosinophils % 3.2 Basophils % 1.4 <Cyrus Saeed - Last Filed: 12/30/17 20:54> - LABORATORY CBC & Chemistry Diagram: 12/30/17 18:10 12/30/17 21:01 - ADDITIONAL ORDERS Additional order review: Laboratory Results 12/30/17 12/30/17 18:10 17:30 PT with INR 82.20 H INR 7.27 H* D Urine Color Ltyellow Urine Appearance Cloudy Urine pH 7.0 D Ur Specific [place] 1.020 Urine Protein Negative Urine Glucose (UA) Negative Urine Ketones Negative Urine Blood 3+ H Urine Nitrite Negative Urine Bilirubin Negative Urine Urobilinogen Negative Ur Leukocyte Esterase Negative 12/30/17 18:10 RBC 4.43 MCV 82.0 MCHC 31.4 L RDW 15.6 MPV 9.7 Neutrophils % 56.2 Lymphocytes % 33.2 Monocytes % 6.0 Eosinophils % 3.2 Basophils % 1.4 <Neil Harris - Last Filed: 12/30/17 21:59> Medical Decision Making - Medical Decision Making 12/30/17 19:40 32 F sent in for INR check after POC INR was >8 in office today. Pt with no complaints. Reports normal menstrual bleeding, no other bleeding. No s/s anemia. - Labs, INR 12/30/17 21:59 Labs wnl INR 7.3 Pt given vitamin K 2.5mg PO. Instructed to hold Coumadin today. Pt is well appearing, with normal vitals. Clinically stable for DC at this time. I discussed the physical exam findings, ancillary test results and final diagnoses with the patient. I answered all of the patient's questions. The patient was satisfied with the care received and felt comfortable with the discharge plan and treatment plan. The patient agrees to follow up with the primary care physician within 24-72 hours. <Neil Harris - Last Filed: 12/30/17 21:59> *DC/Admit/Observation/Transfer - Attestations Scribe Attestion: 12/30/17 20:54 Documentation prepared by Cyrus Saeed, acting as associate medical director for Neil Harris MD. <Cyrus Saeed - Last Filed: 12/30/17 20:54> - Attestations Physician Attestion: 12/30/17 21:38 I, Dr. Neil Harris MD, attest that this document has been prepared under my direction and personally reviewed by me in its entirety. I further attest, that it accurately reflects all work, treatment, procedures and medical decision -making performed by me. <Neil Harris - Last Filed: 12/30/17 21:59> Diagnosis at time of Disposition: Supratherapeutic INR - Discharge Dispostion Disposition: HOME - Referrals Referrals: Allyn Davidson MD [Primary Care Provider] - - Patient Instructions Printed Discharge Instructions: Warfarin Additional Instructions: Your INR today was 7.3. HOLD your next dose of coumadin and resume taking it as usual the day after. Follow up with your primary doctor for another INR check within 1 week. If you experience any abnormal bleeding, lightheadedness, or any other concerning symptoms, return to the ER immediately. - Post Discharge Activity
[2017-12-30] MEDS ORDERED: PHYTONADIONE 5 MG TABLET PO ONE ×2 (19:46→21:14)
[2017-12-30 19:55] LABS: EPI CELLS RARE /HPF (FEW); YEAST MANY
[2017-12-30 20:15] LABS: PLATELET ESTIMATE ADEQUATE
[2017-12-30 21:53] LABS: ALK PHOS 83 U/L (45-117); ANION GAP 7 (8-16); BILIRUBIN,TOTAL 0.5 mg/dL (0.2-1.0); BLOOD UREA NITROGEN 17 mg/dL (7-18); CALCIUM 8.7 mg/dL (8.5-10.1); CHLORIDE 106 mmol/L (98-107); CO2 27 mmol/L (21-32); CREATININE 0.8 mg/dL (0.55-1.02); GLUCOSE,RANDOM 89 mg/dL (74-106); POTASSIUM 3.8 mmol/L (3.5-5.1); SGOT/AST 28 U/L (15-37); SGPT/ALT 23 U/L (12-78); SODIUM 140 mmol/L (136-145); TOT PROT 8.1 g/dl (6.4-8.2)
== END 2017-12-30 22:08 | disposition home or self-care (01) ==
LOC: JER 17:17
DX: R79.1 Abnormal coagulation profile (principal); Z79.01 Long term (current) use of anticoagulants; Z95.2 Presence of prosthetic heart valve; Z95.0 Presence of cardiac pacemaker
CPT/HCPCS: 36415; 80053; 81003; 81015; 85025; 85610; 86850; 86900; 86901; 99283-25

== ENCOUNTER 2021-08-27 13:29 | Emergency (ER) | payer OTHER ==
[2021-08-27 13:52] VITALS: BMI 23.9
[2021-08-27] MEDS ORDERED: SODIUM CHLORIDE 0.9% 500 ML INFUS.BAG IV ONE ×2 (15:05→18:43)
[2021-08-27] MEDS ORDERED: morphine CARPU-JECT 2 MG/1 ML DISP.SYRIN IVPUSH ONE (15:57)
[2021-08-27 15:59] LABS: BASO % 0.3 % (0-2.0); EOS % 0.2 % (0-4.5); HEMATOCRIT 28.1 % (32.4-45.2); HEMOGLOBIN 8.8 GM/dL (10.7-15.3); LYMPH % 8.7 % (8-40); MCH 26.4 pg (25.7-33.7); MCHC 31.2 g/dl (32.0-36.0); MEAN CELL VOLUME 84.7 fl (80-96); MEAN PLT VOLUME 9.7 fl (7.5-11.1); MONO % 4.3 % (3.8-10.2); NEUT % 86.5 % (42.8-82.8); PLATELET COUNT 322 10^3/uL (134-434); RBC 3.31 M/mm3 (3.60-5.2); RDW 16.8 % (11.6-15.6); WHITE BLOOD COUNT 12.5 K/mm3 (4.0-10.0)
[2021-08-27 16:29] LABS: CALCIUM 8.7 mg/dL (8.5-10.1)
[2021-08-27 16:30] LABS: ALBUMIN 3.3 g/dl (3.4-5.0); BLOOD UREA NITROGEN 15.2 mg/dL (7-18)
[2021-08-27] MEDS ORDERED: ONDANSETRON 4 MG/2 ML VIAL IVPUSH ONE (16:31)
[2021-08-27 16:33] LABS: CREATININE 0.7 mg/dL (0.55-1.3)
[2021-08-27 16:35] LABS: BILIRUBIN,TOTAL 0.4 mg/dL (0.2-1); TOT PROT 6.9 g/dl (6.4-8.2)
[2021-08-27 16:40] LABS: HCG,QUALITATIVE URINE Positive
[2021-08-27 16:42] LABS: EPI CELLS 26 /uL (0-25.1); HYALINE CASTS 18 /uL (0-3.1); URINE APPEARANCE CLEAR; URINE BILIRUBIN NEGATIVE (NEGATIVE); URINE COLOR DK YELLOW; URINE GLUCOSE (UA) NEGATIVE (NEGATIVE); URINE KETONE TRACE (NEGATIVE); URINE LEUK ESTERASE NEGATIVE (NEGATIVE); URINE NITRITE NEGATIVE (NEGATIVE); URINE PROTEIN TRACE (NEGATIVE); URINE RBC 1827 /uL (0-23.9); URINE UROBILINOGEN 0.2 mg/dL (0.2-1.0); URINE WBC 18 /uL (0-25.8)
[2021-08-27 17:05] LABS: URINE BACTERIA 99 /uL (0-1359)
[2021-08-27] MEDS ORDERED: ACETAMINOPHEN 1000 MG/100 ML BAG IVPB ONE (18:44)
[2021-08-27] MEDS ORDERED: ACETAMINOPHEN INJECTION 100 ML IVPB ONE (18:48)
[2021-08-27 19:15] VITALS: PULSE 66
[2021-08-27] MEDS ORDERED: PIPERACILLIN/TAZOB 4.5 GM 4.5 GM in DEXTROSE 5%-WATER 100 ML IVPB ONE (19:46)
[2021-08-27] MEDS ORDERED: VANCOMYCIN 1 GM in D5W (PRE-DOCKED) 1,000 MG/250 ML IVPB ONE (19:46)
[2021-08-27] MEDS ORDERED: PIPERACILLIN/TAZOB 4.5 GM 4.5 GM/100 ML BAG IVPB ONE (19:52)
[2021-08-27] MEDS ORDERED: LACTATED RINGERS SOLUTION 1,000 ML/1,000 ML INFUS.BAG IV ONE (20:14)
[2021-08-27] MEDS ORDERED: VANCOMYCIN 1 GRAM (PRE-DOCKED) 1,000 MG/250 ML BAG IVPB ONE (20:24)
[2021-08-27 21:30] VITALS: TEMP 99.3
[2021-08-27] MEDS ORDERED: MAG HYDROX/AL HYDROX/SIMETH -MYLANTA- ORAL SUSPENSION PO ONE (21:45)
[2021-08-27] MEDS ORDERED: FAMOTIDINE 20 MG/50 ML IVPB 20 MG/50 ML MG IVPB ONE ×2 (21:45→21:47)
[2021-08-27] MEDS ORDERED: morphine SULFATE 4 MG/ML VIAL IVPUSH ONE (21:45)
[2021-08-27] MEDS ORDERED: MAG HYDROX/AL HYDROX/SIMETH 30 ML UNIT-DOSE CUP ONE (21:47)
[2021-08-27 22:09] VITALS: BP 101/56
== END 2021-08-27 22:18 | disposition short-term general hospital (02) ==
LOC: JER 13:29
PROC: 3E0333Z Introduction of Anti-inflammatory into Peripheral Vein, Percutaneous Approach (ICD-10-PCS; principal; 2021-08-27)
PROC: 3E033GC Introduction of Other Therapeutic Substance into Peripheral Vein, Percutaneous Approach (ICD-10-PCS; 2021-08-27)
PROC: 3E033NZ Introduction of Analgesics, Hypnotics, Sedatives into Peripheral Vein, Percutaneous Approach (ICD-10-PCS; 2021-08-27)
PROC: 3E033GC Introduction of Other Therapeutic Substance into Peripheral Vein, Percutaneous Approach (ICD-10-PCS; 2021-08-27)
PROC: 3E03329 Introduction of Other Anti-infective into Peripheral Vein, Percutaneous Approach (ICD-10-PCS; 2021-08-27)
PROC: 3E03329 Introduction of Other Anti-infective into Peripheral Vein, Percutaneous Approach (ICD-10-PCS; 2021-08-27)
DX: N99.840 Postprocedural hematoma of a genitourinary system organ or structure following a genitourinary system procedure (principal)
CPT/HCPCS: 36415; 71045-TC-FY; 74177-TC; 80053; 81003; 82550; 83605; 84484; 84702; 84703; 85025; 85730; 87040; 87086; 87186; 93005; 93010; 96374; 96375; 99285-25; C9803; J0131; Q9967; U0003; U0005

== ENCOUNTER 2022-12-14 09:52 | Inpatient (IN) | payer OTHER ==
[2022-12-14 09:57] VITALS: BMI 23.9
[2022-12-14] MEDS ORDERED: amLODIPine BESYLATE 10 MG TABLET (FP) PO ONE (10:51)
[2022-12-14] MEDS ORDERED: amLODIPine BESYLATE 10 MG TABLET (FP) ONE (10:58)
[2022-12-14 11:33] LABS: INR 1.5 (0.83-1.09); PROTHROMBIN TIME (PATIENT) 17.3 SEC (9.7-13.0)
[2022-12-14 11:36] LABS: ACTIVATED PTT 31.3 SECONDS (25.2-36.5)
[2022-12-14 11:49] LABS: ALBUMIN 3.8 g/dl (3.4-5.0); BLOOD UREA NITROGEN 11.3 mg/dL (7-18); CALCIUM 9.1 mg/dL (8.5-10.1)
[2022-12-14 11:51] LABS: CREATININE 0.7 mg/dL (0.55-1.3)
[2022-12-14 11:53] LABS: BILIRUBIN,TOTAL 0.7 mg/dL (0.2-1); TOT PROT 7.8 g/dl (6.4-8.2)
[2022-12-14 12:34] LABS: BASO % 1.1 % (0-2.0); EOS % 1.1 % (0-4.5); HEMATOCRIT 40.6 % (32.4-45.2); HEMOGLOBIN 13.3 GM/dL (10.7-15.3); MCH 27.2 pg (25.7-33.7); MCHC 32.6 g/dl (32.0-36.0); MEAN CELL VOLUME 83.3 fl (80-96); MEAN PLT VOLUME 10.6 fl (7.5-11.1); MONO % 6.4 % (3.8-10.2); NEUT % 73.4 % (42.8-82.8); PLATELET COUNT 171 10^3/uL (134-434); RBC 4.88 M/mm3 (3.60-5.2); RDW 14.4 % (11.6-15.6); WHITE BLOOD COUNT 8.4 K/mm3 (4.0-10.0)
[2022-12-14 12:48] LABS: POTASSIUM 4.2 mmol/L (3.5-5.1)
[2022-12-14 12:50] LABS: CALCIUM 9.2 mg/dL (8.5-10.1)
[2022-12-14 12:51] LABS: ALBUMIN 4.1 g/dl (3.4-5.0); BLOOD UREA NITROGEN 11.2 mg/dL (7-18)
[2022-12-14 12:54] LABS: CREATININE 0.7 mg/dL (0.55-1.3)
[2022-12-14 12:55] LABS: BILIRUBIN,TOTAL 0.8 mg/dL (0.2-1); TOT PROT 7.9 g/dl (6.4-8.2)
[2022-12-14] MEDS ORDERED: HEPARIN NA (PORCINE) 5,000 UNITS/ML 1ML VIAL IVPUSH PRN ×2 (13:11)
[2022-12-14] MEDS: HEPARIN INFUSION - 25,000 UNITS/500 ML INFUS.BAG IVPB SCH (17:20)
[2022-12-14] MEDS ORDERED: HEPARIN INFUSION - 25,000 UNITS/500 ML INFUS.BAG IVPB ONE (17:37)
[2022-12-14 22:09] LABS: INR 1.58 (0.83-1.09); PROTHROMBIN TIME (PATIENT) 18.2 SEC (9.7-13.0)
[2022-12-15 07:31] LABS: INR 1.54 (0.83-1.09); POTASSIUM 4.5 mmol/L (3.5-5.1); PROTHROMBIN TIME (PATIENT) 17.8 SEC (9.7-13.0)
[2022-12-15 07:33] LABS: ACTIVATED PTT 107.6 SECONDS (25.2-36.5)
[2022-12-15 07:34] LABS: CALCIUM 8.6 mg/dL (8.5-10.1)
[2022-12-15 07:35] LABS: ALBUMIN 3.6 g/dl (3.4-5.0); BLOOD UREA NITROGEN 9.5 mg/dL (7-18); MAGNESIUM 1.9 mg/dL (1.8-2.4)
[2022-12-15 07:37] LABS: CREATININE 0.6 mg/dL (0.55-1.3); PHOSPHOROUS 3.2 mg/dL (2.5-4.9)
[2022-12-15 07:39] LABS: BILIRUBIN,TOTAL 0.9 mg/dL (0.2-1); TOT PROT 7.4 g/dl (6.4-8.2)
[2022-12-15 07:43] LABS: N-TERMINAL BNP 559.6 pg/ml (5-125)
[2022-12-15 08:27] LABS: BASO % 0.8 % (0-2.0); EOS % 2.4 % (0-4.5); HEMATOCRIT 39.1 % (32.4-45.2); HEMOGLOBIN 12.9 GM/dL (10.7-15.3); LYMPH % 26.1 % (8-40); MCH 27.4 pg (25.7-33.7); MCHC 32.9 g/dl (32.0-36.0); MEAN CELL VOLUME 83.4 fl (80-96); MEAN PLT VOLUME 10.9 fl (7.5-11.1); MONO % 6.3 % (3.8-10.2); NEUT % 64.4 % (42.8-82.8); PLATELET COUNT 130 10^3/uL (134-434); RBC 4.68 M/mm3 (3.60-5.2); RDW 14.5 % (11.6-15.6)
[2022-12-15] MEDS: amLODIPine BESYLATE 10 MG TABLET (FP) PO SCH (09:41)
[2022-12-15] MEDS: ASPIRIN 81 MG CHEWABLE TABLETS PO SCH (12:02)
[2022-12-15] MEDS ORDERED: WARFARIN NA 5 MG TABLET PO ONE (18:00)
[2022-12-15] MEDS ORDERED: WARFARIN NA 3 MG TABLET PO ONE (18:00)
[2022-12-16] MEDS: HEPARIN INFUSION - 25,000 UNITS/500 ML INFUS.BAG IVPB SCH ×2 (00:09→20:13)
[2022-12-16 08:14] LABS: POTASSIUM 4.5 mmol/L (3.5-5.1)
[2022-12-16 08:20] LABS: CALCIUM 9.4 mg/dL (8.5-10.1)
[2022-12-16 08:22] LABS: ALBUMIN 3.6 g/dl (3.4-5.0); BLOOD UREA NITROGEN 13.4 mg/dL (7-18); MAGNESIUM 2.1 mg/dL (1.8-2.4)
[2022-12-16 08:23] LABS: CREATININE 0.7 mg/dL (0.55-1.3)
[2022-12-16 08:23] LABS: HEMATOCRIT 39.6 % (32.4-45.2); MCH 27.4 pg (25.7-33.7); MCHC 32.7 g/dl (32.0-36.0); MEAN CELL VOLUME 83.7 fl (80-96); PLATELET COUNT 229 10^3/uL (134-434); RBC 4.73 M/mm3 (3.60-5.2); RDW 14.6 % (11.6-15.6)
[2022-12-16 08:24] LABS: PHOSPHOROUS 3.8 mg/dL (2.5-4.9)
[2022-12-16 08:26] LABS: BILIRUBIN,TOTAL 0.6 mg/dL (0.2-1); TOT PROT 7.5 g/dl (6.4-8.2)
[2022-12-16 09:01] LABS: INR 1.38 (0.83-1.09); PROTHROMBIN TIME (PATIENT) 15.9 SEC (9.7-13.0)
[2022-12-16 09:04] LABS: ACTIVATED PTT 72.1 SECONDS (25.2-36.5)
[2022-12-16] MEDS: ASPIRIN 81 MG CHEWABLE TABLETS PO SCH (09:13)
[2022-12-16] MEDS: amLODIPine BESYLATE 10 MG TABLET (FP) PO SCH (09:13)
[2022-12-16] MEDS ORDERED: WARFARIN NA 5 MG TABLET PO ONE (18:00)
[2022-12-17 07:48] LABS: INR 1.74 (0.83-1.09); PROTHROMBIN TIME (PATIENT) 20.1 SEC (9.7-13.0)
[2022-12-17 07:49] LABS: HEMATOCRIT 39.3 % (32.4-45.2); HEMOGLOBIN 12.9 GM/dL (10.7-15.3); MCH 27.2 pg (25.7-33.7); MCHC 32.7 g/dl (32.0-36.0); MEAN CELL VOLUME 83.1 fl (80-96); PLATELET COUNT 149 10^3/uL (134-434); RBC 4.73 M/mm3 (3.60-5.2); RDW 14.5 % (11.6-15.6); WHITE BLOOD COUNT 7.6 K/mm3 (4.0-10.0)
[2022-12-17 08:10] LABS: POTASSIUM 4.3 mmol/L (3.5-5.1)
[2022-12-17 08:18] LABS: ALBUMIN 3.9 g/dl (3.4-5.0); BLOOD UREA NITROGEN 11.8 mg/dL (7-18); CALCIUM 8.8 mg/dL (8.5-10.1); MAGNESIUM 1.9 mg/dL (1.8-2.4)
[2022-12-17 08:21] LABS: CREATININE 0.7 mg/dL (0.55-1.3); PHOSPHOROUS 3.8 mg/dL (2.5-4.9)
[2022-12-17 08:22] LABS: BILIRUBIN,TOTAL 0.4 mg/dL (0.2-1); TOT PROT 7.7 g/dl (6.4-8.2)
[2022-12-17] MEDS: amLODIPine BESYLATE 10 MG TABLET (FP) PO SCH (09:17)
[2022-12-17] MEDS: ASPIRIN 81 MG CHEWABLE TABLETS PO SCH (09:17)
[2022-12-17] MEDS: HEPARIN INFUSION - 25,000 UNITS/500 ML INFUS.BAG IVPB SCH (13:33)
[2022-12-17] MEDS ORDERED: WARFARIN NA 3 MG TABLET PO ONE (18:00)
[2022-12-17] MEDS ORDERED: HEPARIN INFUSION - 25,000 UNITS/500 ML INFUS.BAG IVPB SCH (23:50)
[2022-12-17] MEDS ORDERED: HEPARIN NA (PORCINE) 5,000 UNITS/ML 1ML VIAL IVPUSH PRN ×2 (23:50)
[2022-12-18 08:10] LABS: HEMATOCRIT 36.5 % (32.4-45.2); HEMOGLOBIN 12.2 GM/dL (10.7-15.3); MCH 27.7 pg (25.7-33.7); MCHC 33.4 g/dl (32.0-36.0); MEAN CELL VOLUME 82.8 fl (80-96); MEAN PLT VOLUME 9.7 fl (7.5-11.1); PLATELET COUNT 256 10^3/uL (134-434); RBC 4.41 M/mm3 (3.60-5.2); RDW 14.7 % (11.6-15.6); WHITE BLOOD COUNT 6.8 K/mm3 (4.0-10.0)
[2022-12-18 08:18] LABS: INR 2.7 (0.83-1.09)
[2022-12-18 08:30] LABS: POTASSIUM 4.1 mmol/L (3.5-5.1)
[2022-12-18 08:32] LABS: ALBUMIN 3.8 g/dl (3.4-5.0); CALCIUM 8.8 mg/dL (8.5-10.1)
[2022-12-18 08:33] LABS: BLOOD UREA NITROGEN 12.7 mg/dL (7-18); MAGNESIUM 1.8 mg/dL (1.8-2.4)
[2022-12-18 08:36] LABS: CREATININE 0.8 mg/dL (0.55-1.3); PHOSPHOROUS 3.8 mg/dL (2.5-4.9)
[2022-12-18 08:37] LABS: BILIRUBIN,TOTAL 0.4 mg/dL (0.2-1)
[2022-12-18 08:41] LABS: TOT PROT 7.4 g/dl (6.4-8.2)
[2022-12-18] MEDS ORDERED: amLODIPine BESYLATE 10 MG TABLET (FP) PO SCH (10:00)
[2022-12-18] MEDS ORDERED: ASPIRIN 81 MG CHEWABLE TABLETS PO SCH (10:00)
[2022-12-18 11:55] VITALS: BP 121/64; PULSE 69; RESP 16; TEMP 98.6
== END 2022-12-18 13:59 | disposition home or self-care (01) | DRG 861 ==
LOC: JER 09:52 → JERBED 13:40 → J4W 21:28 → J6S 12-17 22:52
PROVIDERS: ADMIT Internal Medicine; ATTEND Internal Medicine
DX: R79.1 Abnormal coagulation profile (principal); I10 Essential (primary) hypertension; I34.1 Nonrheumatic mitral (valve) prolapse; I48.0 Paroxysmal atrial fibrillation; Z79.01 Long term (current) use of anticoagulants; Z95.0 Presence of cardiac pacemaker; Z95.2 Presence of prosthetic heart valve
CPT/HCPCS: 0241U-QW; 36415; 80053; 83735; 83880; 84100; 84702; 84703; 85025; 85027; 85610; 85730; 86850; 86870; 86900; 86901; 86902; 93005; 93010; 93306-TC; 99285-25; J1644

== ENCOUNTER 2023-06-20 06:17 | Emergency (ER) | payer OTHER ==
[2023-06-20 06:24] VITALS: RESP 16; TEMP 98.2; BMI 23.9
[2023-06-20 07:43] VITALS: PULSE 60
[2023-06-20 08:21] LABS: HEMATOCRIT 38.6 % (32.4-45.2); MCH 26.1 pg (25.7-33.7); MEAN CELL VOLUME 84.2 fl (80-96); MEAN PLT VOLUME 8.4 fl (7.5-11.1); PLATELET COUNT 206 10^3/uL (134-434); RBC 4.58 M/mm3 (3.60-5.2); RDW 15.4 % (11.6-15.6)
[2023-06-20 08:22] LABS: EPI CELLS >36 /uL (0-25.1); HYALINE CASTS 2 /uL (0-3.1); URINE APPEARANCE TURBID; URINE BACTERIA 642 /uL (0-1359); URINE BILIRUBIN NEGATIVE (NEGATIVE); URINE COLOR YELLOW; URINE GLUCOSE (UA) NEGATIVE (NEGATIVE); URINE KETONE NEGATIVE (NEGATIVE); URINE LEUK ESTERASE 3+ (NEGATIVE); URINE NITRITE NEGATIVE (NEGATIVE); URINE PROTEIN TRACE (NEGATIVE); URINE RBC 39 /uL (0-23.9); URINE UROBILINOGEN 0.2 mg/dL (0.2-1.0); URINE WBC 71 /uL (0-25.8)
[2023-06-20 08:23] LABS: PROTHROMBIN TIME (PATIENT) 46.4 SEC (9.7-13.0)
[2023-06-20 08:26] LABS: ACTIVATED PTT 41.5 SECONDS (25.2-36.5)
[2023-06-20 08:36] LABS: INR 4.06 (0.83-1.09)
[2023-06-20 08:57] LABS: POTASSIUM 3.9 mmol/L (3.5-5.1)
[2023-06-20 09:10] LABS: CALCIUM 8.9 mg/dL (8.5-10.1)
[2023-06-20 09:11] LABS: BLOOD UREA NITROGEN 12.2 mg/dL (7-18)
[2023-06-20 09:12] LABS: MAGNESIUM 2.1 mg/dL (1.8-2.4)
[2023-06-20 09:14] LABS: CREATININE 0.8 mg/dL (0.55-1.3)
[2023-06-20 09:16] LABS: BILIRUBIN,TOTAL 0.6 mg/dL (0.2-1); TOT PROT 8.4 g/dl (6.4-8.2)
[2023-06-20] MEDS ORDERED: CEPHALEXIN MONOHYDRATE 500 MG CAPSULE (UD) PO ONE (09:34)
[2023-06-20] MEDS ORDERED: CEPHALEXIN MONOHYDRATE 500 MG CAPSULE (UD) ONE (09:50)
[2023-06-20 09:58] VITALS: BP 126/84
[2023-06-20 10:52] LABS: ANISOCYTOSIS 0; HELMET CELLS 0; HOWELL-JOLLY BODIES 0; MACROCYTOSIS 0; OVALOCYTE 0; ROULEAU 0; SICKELED CELLS 0; TARGET CELLS 0; TEAR DROP CELLS 0; TOXIC GRANULATION 0
== END 2023-06-20 09:59 | disposition home or self-care (01) ==
LOC: JER 06:17
DX: R10.32 Left lower quadrant pain (principal); M54.50 Low back pain, unspecified; R11.2 Nausea with vomiting, unspecified; R79.1 Abnormal coagulation profile; N39.0 Urinary tract infection, site not specified
CPT/HCPCS: 36415; 80053; 81003; 83690; 83735; 84703; 85025; 85610; 85730; 87077; 87086; 93005; 93010; 99283-25

== ENCOUNTER 2024-03-31 10:26 | Emergency (ER) | payer OTHER ==
[2024-03-31 10:49] VITALS: RESP 16; TEMP 98.4; BMI 23.9
[2024-03-31] MEDS: DORZOLAMIDE HCL/TIMOLOL OPHTHALMIC SOLUTION 10 ML BOTTLE OD SCH ×2 (14:13→14:40)
[2024-03-31] MEDS: BRIMONIDINE TARTRATE 0.2% OPHTHALMIC 5 ML BOTTLE OS SCH (14:13)
[2024-03-31 14:50] VITALS: BP 147/82; PULSE 60
== END 2024-03-31 14:51 | disposition short-term general hospital (02) ==
LOC: JERFT 10:26
PROC: 3E033GC Introduction of Other Therapeutic Substance into Peripheral Vein, Percutaneous Approach (ICD-10-PCS; principal; 2024-03-31)
DX: H57.89 Other specified disorders of eye and adnexa (principal); H40.052 Ocular hypertension, left eye
CPT/HCPCS: 99285-25

== ENCOUNTER 2025-03-25 14:07 | Emergency (ER) | payer OTHER ==
[2025-03-25 14:15] VITALS: BP 125/70; PULSE 70; RESP 15; TEMP 98.5; BMI 23.9
[2025-03-25 16:02] LABS: ABSOLUTE IMMATURE GRANULOCYTES 0.02 x10^3/uL (0.0-0.031); BASOPHILS # 0.04 x10^3/uL (0.01-0.08); EOSINOPHIL % 4.6 % (0.7-5.8); EOSINOPHILS # 0.31 x10^3/uL (0.04-0.36); MCHC 31.4 g/dl (32.2-35.5); MEAN CELL VOLUME 88.3 fl (79.4-94.8); MEAN PLT VOLUME 11.1 fl (9.4-12.3); MONOCYTE # 0.43 x10^3/uL (0.24-0.86); MONOCYTE % 6.4 % (4.7-12.5); RDW 15.6 % (12.2-17.1)
[2025-03-25 16:29] LABS: ALK PHOS 72.0 U/L (45-117); CO2 25.0 mmol/L (21-32); CREATININE 0.7 mg/dl (0.6-1.3); GLUCOSE,RANDOM 86.0 mg/dl (74-106); SGOT/AST 25.0 U/L (15-37); SGPT/ALT 16.0 U/L (7-52); TOT PROT 7.3 g/dl (6.4-8.2)
== END 2025-03-25 17:00 | disposition home or self-care (01) ==
LOC: FER 14:07
DX: S90.02XA Contusion of left ankle, initial encounter (principal); S80.12XA Contusion of left lower leg, initial encounter; S70.12XA Contusion of left thigh, initial encounter; S70.02XA Contusion of left hip, initial encounter; S90.812A Abrasion, left foot, initial encounter; V28.49XA Other motorcycle driver injured in noncollision transport accident in traffic accident, initial encounter; Y92.410 Unspecified street and highway as the place of occurrence of the external cause
CPT/HCPCS: 36415; 73502-TC-LT-FY; 73552-TC-LT-FY; 73590-TC-LT-FY; 73610-TC-LT-FY; 73630-TC-LT; 80053; 81025; 85025; 99284-25